=== PATIENT | female | born 1960 | race Caucasian/White ===

== ENCOUNTER → 2024-04-22 | Outpatient (CLI) | payer OTHER, SELFPAY ==
[2024-04-22 15:18] LABS: Absolute Lymphocyte Count 1.42 X10^3/uL (0.83-4.51); Absolute Neutrophil Count 3.5 X10^3/uL (2.0-7.7); Basophil# 0.09 X10^3/uL; Basophil% 1.5 % (0-1); Eosinophil# 0.46 X10^3/uL; Eosinophils% 7.8 % (0-5); Hematocrit 40.8 % (37-47); Lymphocyte # 1.42 X10^3/ul (0.83-4.51); Mean Corp Hgb Conc 31.9 g/dL (32-36); Mean Corpuscular Hgb 28.6 pg (27.0-32.0); Mean Corpuscular Volume 89.7 fL (81-99); Mean Platelet Vol. 11.5 fl (6.2-12.0); Monocyte# 0.48 X10^3/uL; Monocyte% 8.1 % (0-10); NRBC Flagged by Analyzer 0 % (0-5); Neutrophil # 3.45 X10^3/uL (2.7-7.7); Neutrophil % 58.3 % (47-70); Platelet Count 232 K/mm3 (150-450); RBC Distribution Width CV 13.2 % (11.6-14.6); RBC Distribution Width SD 43.5 fl (35.1-43.9); Red Blood Count 4.55 M/mm3 (4.2-5.4); White Blood Count 5.9 K/mm3 (4.4-11.0)
[2024-04-22 15:48] LABS: AST(SGOT) 18 U/L (15-37); Alanine Aminotransfer ALT/SGPT 25 U/L (13-56); Albumin, Serum 3.6 g/dL (3.2-5.0); Alkaline Phosphatase 119 U/L (45-117); Anion Gap 5 (5-15); BUN 13 mg/dL (7-18); BUN/Creat Ratio 15.2 RATIO (10-20); Calcium,Total 9.5 mg/dL (8.5-10.1); Chloride 101 mmol/L (98-107); Cholesterol 276 mg/dL (200); Creatinine, Serum 0.86 mg/dL (0.55-1.02); EST Glomerular Filtration Rate 70 mL/min (>60); Est Glom Filt Rate - Afr Amer 85 mL/min (>60); Globulin 3.5 g/dL (2.2-4.2); Glucose 87 mg/dL (74-106); High Density Lipoprotein 65 mg/dL; Potassium 4.5 mmol/L (3.5-5.1); Protein, Total 7.1 g/dL (6.4-8.2); Sodium Level 135 mmol/L (136-145); Thyroid Stim Hormone (TSH) 1.27 uIU/mL (0.358-3.74); Triglycerides 133 mg/dL; Very Low Density Lipoprotein 27 mg/dL (5-40)
== END | disposition home or self-care (01) ==
LOC: BFHLAB 13:19
PROVIDERS: PCP Family Medicine; Referring Provider Family Medicine; Visit Provider Family Medicine
DX: E03.9 Hypothyroidism, unspecified (principal); I10 Essential (primary) hypertension; E78.5 Hyperlipidemia, unspecified
CPT/HCPCS: 36415; 80053; 80061; 84443; 85025

== ENCOUNTER → 2024-05-26 | Outpatient (CLI) | payer OTHER, SELFPAY ==
--- NOTE | 2024-05-26 09:36 | BI_ITS ---
MAMMOGRAPHY - BILATERAL SCREENING REASON FOR EXAM: Female, 63 years old. Routine annual screening examination. PERTINENT HISTORY: Personal history of breast cancer. Prior right lumpectomy and bilateral breast reduction surgery. Sr. with breast cancer. Mother with breast cancer. TECHNIQUE: Digital bilateral breast azucena (3D mammographic acquisition) in the CC and MLO projections. 2-D mediolateral oblique (MLO) and craniocaudad (CC) views of both breasts were obtained. CAD: Full Field Digital Mammography with Computer Added Detection was performed. COMPARISON: Comparison is made with prior outside examination dated June 20, 2023. FINDINGS: Breast Composition: There are scattered areas of fibroglandular density. There are no dominant masses or suspicious calcifications. The patient is status post lumpectomy in the upper lateral aspect of the right breast with resultant postoperative scarring and dystrophic calcifications. Surgical clips are seen in the right axilla. No other significant abnormalities are identified. There has been no significant change since the prior study. BI/SCRN MAMM (CAD)W/AZUCENA BILAT IMPRESSION: Stable bilateral screening mammogram. Yearly follow-up mammogram recommended. (A) ASSESSMENT CATEGORY: BIRADS Category 2: Benign. A letter regarding these results will be sent to the patient by the facility within 30 days. Approximately 10% of breast cancers are not detected by mammography. A normal mammogram should not delay biopsy of a clinically suspicious abnormality. [id number] Electronically Signed: Tenzin Tarango MD at 15:32 EDT ,
== END | disposition home or self-care (01) ==
LOC: OPBI 09:34
PROVIDERS: PCP Family Medicine; Referring Provider Family Medicine; Visit Provider Family Medicine
DX: Z12.31 Encounter for screening mammogram for malignant neoplasm of breast (principal)
CPT/HCPCS: 77063; 77067

== ENCOUNTER → 2024-08-11 | Outpatient (CLI) | payer OTHER, SELFPAY | END | disposition home or self-care (01) | LOC: BFHLAB 10:50 → LABSPEC 10:51 | PROVIDERS: PCP Family Medicine; Referring Provider Family Medicine; Visit Provider Family Medicine | DX: R30.0 Dysuria (principal) | CPT/HCPCS: 87077; 87086; 87088; 87186 ==

== ENCOUNTER → 2024-11-24 | Outpatient (CLI) | payer MEDICARE, SELFPAY ==
--- NOTE | 2024-11-24 10:41 | RAD_ITS ---
PROCEDURE: CHEST PA AND LATERAL REASON FOR EXAM: Rule out pneumonia TECHNIQUE: Frontal and lateral views of the chest. COMPARISON: None. FINDINGS: The heart size is normal. There are atherosclerotic calcifications of the thoracic aorta. The lungs are clear. The bones are unremarkable. RAD/Chest PA and Lateral IMPRESSION: No radiographic evidence of acute cardiopulmonary disease Reading Location: [facility]
== END | disposition home or self-care (01) ==
LOC: MTLAB 10:39 → MTRAD 10:39
PROVIDERS: PCP Family Medicine; Referring Provider Nurse Practitioner Family; Visit Provider Nurse Practitioner Family
DX: R05.9 Cough, unspecified (principal)
CPT/HCPCS: 71046

== ENCOUNTER → 2025-06-17 | Outpatient (CLI) | payer MEDICARE, SELFPAY ==
--- NOTE | 2025-06-17 15:38 | BI_ITS ---
EXAM: SCRN MAMM (CAD)W/AZUCENA BILAT DATE: 06/17/2025 CLINICAL HISTORY: F, Age 64 y/o , SCREENING Personal history of breast cancer. Prior right lumpectomy and bilateral breast reduction surgery. Sister with breast cancer. Mother with breast cancer. TECHNIQUE: Procedure Code: [id number] Modality: MG Procedure: SCRN MAMM (CAD)W/ZAUCENA BILAT COMPARISON: Prior exam(s) dated May 26, 2024.. FINDINGS: TISSUE DENSITY: There are scattered areas of fibroglandular density. Bilateral Breast Mammographic Findings: No significant masses, calcifications or other abnormalities are identified. The patient is status post lumpectomy in the upper lateral aspect of the right breast with resultant postoperative scarring and dystrophic calcifications more pronounced in the inferior retroareolar region of the right breast. Surgical clips are seen in the right axilla. The left breast is unremarkable. No suspicious masses, areas of developing architectural distortion, or suspicious calcifications. There has been no significant interval change. BI/SCRN MAMM (CAD)W/AZUCENA BILAT IMPRESSION: Stable bilateral screening mammogram. OVERALL FINAL ASSESSMENT BI-RADS 2: BENIGN RECOMMENDATION: Routine annual follow-up in 1 Year A letter with findings and recommendations will be mailed to the patient. Reading Location: [facility]
== END | disposition home or self-care (01) ==
LOC: OPBI 15:37
PROVIDERS: PCP Family Medicine; Referring Provider Family Medicine; Visit Provider Family Medicine
DX: Z12.31 Encounter for screening mammogram for malignant neoplasm of breast (principal)
CPT/HCPCS: 77063; 77067

== ENCOUNTER → 2025-07-07 | Outpatient (CLI) | payer MEDICARE, SELFPAY ==
--- OUTSIDE RECORDS SUMMARY | 2025-07-09 20:50 | XMS RPT_ITS | CCD ---
Author Organization [facility] [employer] Care Team Providers Care Cake Washer Name Role Phone Ruba Melo MD Primary Care Provider RUBA MELO Primary Care Unavailable DALLIN CABRERA Referring Unavailable RUBA MELO Primary Care Unavailable Ruba Melo Primary Care Unavailable Sandy Prakash Attending Unavailable Sandy Prakash Referring Unavailable Ruba Melo Attending Unavailable Ruba Melo Referring Unavailable Ruba Melo Primary Care Unavailable Ruba Melo Primary Care Unavailable Ruba Melo Attending Unavailable Ruba Melo Referring Unavailable Allergies Allergy Classification Reported Allergen(s) Allergy Type Date of Onset Reaction(s) Facility (3 sources) Amitriptyline; Translations: [AMITRIPTYLINE] Drug Allergy 04-28-20 24 Shortness of Breath [place] (4 sources) Shellfish; Translations: [SHELLFISH DERIVED] Drug Intolerance 04-28-20 24 GI Upset [place] (1 source) Amitriptyline Drug Allergy 05-05-20 24 [facility] Repository Medications Current Medications Medication Drug Class(es) Dates Sig (Normalized) Sig (Original) [id number] 200 actuat albuterol 0.09 mg/actuat metered dose inhaler (2 sources) beta2-Adrenergic Agonist Start: 03-18-2024 albuterol HFA (PROVENTIL HFA, VENTOLIN HFA) 90 mcg/actuation inhaler 03/18/2024 Active amoxicillin 875 mg / clavulanate 125 mg oral tablet (1 source) Penicillin-class Antibacterial Start: 04-28-2024 End: 05-03-2024 take 1 tablet by mouth twice daily amoxicillin-clavul anate potassium (AUGMENTIN) 875-125 mg per tablet Take 1 tablet by mouth two times a day for 5 days. 10 tablet 0 04/28/2024 05/03/2024 Active anastrozole 1 mg oral tablet (2 sources) Aromatase Inhibitor Start: 03-16-2024 anastrozole (ARIMIDEX) 1 mg tablet 03/16/2024 Active azelastine hydrochloride 0.137 mg/actuat metered dose nasal spray (2 sources) Histamine-1 Receptor Antagonist Start: 03-16-2024 azelastine 0.1% nasal spray 03/16/2024 Active benzonatate 100 mg oral capsule (1 source) Non-narcotic Antitussive Start: 04-28-2024 take 1 capsule by mouth every eight hours as needed benzonatate (TESSALON PERLES) 100 mg capsule Take 1 capsule by mouth three times a day as needed for cough. 21 capsule 0 04/28/2024 Active 60 actuat ciclesonide 0.08 mg/actuat metered dose inhaler (2 sources) Start: 03-19-2024 ALVESCO 80 mcg/actuation inhaler 03/19/2024 Active ciprofloxacin 3 mg/ml / dexamethasone 1 mg/ml otic suspension (1 source) Corticosteroid, Quinolone Antimicrobial Start: 04-28-2024 ciprofloxacin-dexA METHasone (CIPRODEX) 0.3-0.1 % otic suspension Use 4 Drops in both ears two times a day. 7.5 mL 0 04/28/2024 Active doxycycline hyclate 100 mg oral tablet (1 source) Tetracycline-class Drug Start: 04-28-2024 End: 05-05-2024 take 1 tablet by mouth twice daily doxycycline (VIBRA-TABS) 100 mg tablet Take 1 tablet by mouth two times a day for 7 days. 14 tablet 0 04/28/2024 05/05/2024 Active FLUoxetine 20 mg oral capsule (2 sources) Serotonin Reuptake Inhibitor Start: 02-06-2024 FLUoxetine (PROZAC) 20 mg capsule 02/06/2024 Active levothyroxine sodium 0.05 mg oral tablet (2 sources) l-Thyroxine Start: 02-06-2024 levothyroxine (SYNTHROID) 50 mcg tablet 02/06/2024 Active losartan potassium 50 mg oral tablet (2 sources) Angiotensin 2 Receptor Lauren Start: 02-06-2024 losartan (COZAAR) 50 mg tablet 02/06/2024 Active predniSONE 10 mg oral tablet (1 source) Start: 04-28-2024 predniSONE (DELTASONE) 10 mg tablet Take 4 tabs daily for 3 days, then 2 tabs daily for 3 days, then 1 tab daily for 3 days with food. 21 tablet 0 04/28/2024 Active traZODone hydrochloride 50 mg oral tablet (2 sources) Serotonin Reuptake Inhibitor Start: 02-06-2024 traZODone (DESYREL) 50 mg tablet 02/06/2024 Active Problems Active Problems Problem Classification Problem Date Documented Da te Episodic/Chronic Other ear and sense organ disorders (1 source) Acute otitis externa of bilateral ears; Translations: [Unspecified acute noninfective otitis externa, bilateral] 04-28-2024 Episodic Other lower respiratory disease (2 sources) Cough; Translations: [Acute cough] 04-28-2024 Episodic Other screening for suspected conditions (not mental disorders or infectious disease) (1 source) Encounter for screening mammogram for malignant neoplasm of breast; Translations: [Encounter for screening mammogram for malignant neoplasm of breast] Onset: 06-27-2025 Episodic Pneumonia (except that caused by tuberculosis or sexually transmitted disease) (1 source) Infective pneumonia; Translations: [Pneumonia, unspecified organism] 04-28-2024 Episodic Unclassified (1 source) Acute cough; Translations: [Acute cough] Onset: 04-28-2024 Unclassified (1 source) Cough, unspecified; Translations: [Cough, unspecified] Onset: 12-06-2024 Past or Other Problems Problem Classification Problem Date Documented Da te Episodic/Chronic Genitourinary symptoms and ill-defined conditions (1 source) Dysuria; Translations: [Dysuria] Onset: 08-30-2024 Episodic Results Test Name Value Interpretation Reference Range Facility SCRN MAMM (CAD)W/AZUCENAAngeline Ridley n 06-17-2025 SCRN MAMM (CAD)W/AZUCENA [facility] Imaging Services [address] [place] [address] SCRN MAMM (CAD)W/AZUCENA [place] MR#: [id number] Acct: [id number] Name: JASONDEVI JO Rep #: [id number] : 1960 F 64 From: Tenzin reyes MD PCP: Dr. Ruba Melo MD Status: REG CLI Study: SCRN MAMM (CAD)W/AZUCENA BILAT Date of Exam: 06/08 Exam# [id number] Ordering Dr: Ruba Melo MD EXAM: SCRN MAMM (CAD)W/AZUCENA BILAT DATE: 06/17/2025 CLINICAL HISTORY: F, Age 64 y/o , SCREENING Personal history of breast cancer. Prior right lumpectomy and bilateral breast reduction surgery. Sister with breast cancer. Mother with breast cancer. TECHNIQUE: Procedure Code: [id number] Modality: MG Procedure: SCRN MAMM (CAD)W/AZUCENA BILAT COMPARISON: Prior exam(s) dated May 26, 2024.. FINDINGS: TISSUE DENSITY: There are scattered areas of fibroglandular density. Bilateral Breast Mammographic Findings: No significant masses, calcifications or other abnormalities are identified. The patient is status post lumpectomy in the upper lateral aspect of the right breast with resultant postoperative scarring and dystrophic calcifications more pronounced in the inferior retroareolar region of the right breast. Surgical clips are seen in the right axilla. The left breast is unremarkable. No suspicious masses, areas of developing architectural distortion, or suspicious calcifications. There has been no significant interval change. BI/SCRN MAMM (CAD)W/AZUCENA BILAT IMPRESSION: Stable bilateral screening mammogram. OVERALL FINAL ASSESSMENT BI-RADS 2: BENIGN RECOMMENDATION: Routine annual follow-up in 1 Year A letter with findings and recommendations will be mailed to the patient. Reading Location: [id number] CC: Dr. Ruba Melo MD Time Checker: Signed Normal [facility] Chest PA and Lateralon 11-24 Chest PA and Lateral [facility] Imaging Services [address] [place] [id number] Chest PA and Lateral MR#: [id number] Acct: [id number] Name: DEVI LUIS Rep #: [id number] : 1960 F 64 From: Mohinder Soria MD PCP: Dr. Ruba Melo MD Status: REG CLI Study: Chest PA and Lateral Date of Exam: 11/24/24 Exam# [id number] Ordering Dr: Sandy Prakash ASSESSMENT EXPERT-C PROCEDURE: CHEST PA AND LATERAL REASON FOR EXAM: Rule out pneumonia TECHNIQUE: Frontal and lateral views of the chest. COMPARISON: None. FINDINGS: The heart size is normal. There are atherosclerotic calcifications of the thoracic aorta. The lungs are clear. The bones are unremarkable. RAD/Chest PA and Lateral IMPRESSION: No radiographic evidence of acute cardiopulmonary disease Reading Location: [facility] CC: ASSESSMENT EXPERT-C Sandy Prakash; Dr. Ruba Melo MD Time Checker: Signed Normal [facility] Urine Cultureon 08-13-2024 [facility] Klebsiella pneumonia e sp pneum [place] Count >100,000 Klebsiella pneumoniae sp pneum: REACTION Ampicillin Islt KARL >=32 Ampicillin+Sulbac Islt KARL 4 S ceFAZolin Islt KARL <=4 S Cefepime Islt KARL <=0.12 S cefTRIAXone Islt KARL <=0.25 S Ciprofloxacin Islt KARL <=0.25 S B-Lactamase Extended Susc Islt NEG Gentamicin Islt KARL <=1 S Imipenem Islt KARL <=0.25 S levoFLOXacin Islt KARL <=0.12 S Nitrofurantoin Islt KARL 64 I Pip+Tazo Islt KARL <=4 S Tobramycin Islt KARL <=1 S TMP SMX Islt KARL <=20 S Normal [facility] Comment on above: Performed By: #### M 100.2201 #### [facility] Laboratory [address] [place], [place], [address] CNOVon 04-28-2024 CNOV Office Visit ([facility]WSTR ) DEVI LUIS ([id number]) 1960 F Date Time Provider Department 04/28/24 7:15 AM DALLIN CABRERA [facility] During your visit today, we recorded the following information about you: Temperature Pulse Respiration Blood pressure 98.9 degrees 88/minute 16/minute 110/64 Weight 87.9 kg Dallin Cabrera APRN.CNP 04/28/2024 9:03 AM Signed This note was created using Collaajriter. Subjective Devi Luis is a 63 year old female. 63 year old female with HTN, chronic sinusitis, asthma, bronchitis presents for illness. Acute onset one month ago. +frontal sinus pressure +ear discomfort Pressure and itching +swollen lymph nodes +cough (chronic) +post nasal drainage +low grade fever yesterday (which has resolved this morning) +chills Denies N/V/D Has used peroxide and alcohol in ears +Neosporin Denies tobacco usage The history is provided by the patient. No strike plate attacher was used. Sinus Problem This is a new problem. The current episode started 1 to 4 weeks ago. The problem occurs constantly. The problem has been gradually worsening. Associated symptoms include congestion, coughing, a fever, headaches and swollen glands. Pertinent negatives include no abdominal pain, anorexia, arthralgias, change in bowel habit, chest pain, chills, diaphoresis, fatigue, joint swelling, myalgias, nausea, neck pain, numbness, rash, sore throat, urinary symptoms, vertigo, visual change, vomiting or weakness. Nothing aggravates the symptoms. She has tried nothing for the symptoms. The treatment provided no relief. No past medical history on file. No past surgical history on file. ALLERGIES Amitriptyline and Shellfish Derived MEDICATIONS albuterol HFA (PROVENTIL HFA, VENTOLIN HFA) 90 mcg/actuation inhaler anastrozole (ARIMIDEX) 1 mg tablet azelastine 0.1% nasal spray ALVESCO 80 mcg/actuation inhaler FLUoxetine (PROZAC) 20 mg capsule levothyroxine (SYNTHROID) 50 mcg tablet losartan (COZAAR) 50 mg tablet traZODone (DESYREL) 50 mg tablet doxycycline (VIBRA-TABS) 100 mg tablet Take 1 tablet by mouth two times a day for 7 days. predniSONE (DELTASONE) 10 mg tablet Take 4 tabs daily for 3 days, then 2 tabs daily for 3 days, then 1 tab daily for 3 days with food. benzonatate (TESSALON PERLES) 100 mg capsule Take 1 capsule by mouth three times a day as needed for cough. ciprofloxacin-dexAMETH asone (CIPRODEX) 0.3-0.1 % otic suspension Use 4 Drops in both ears two times a day. amoxicillin-clavulanat e potassium (AUGMENTIN) 875-125 mg per tablet Take 1 tablet by mouth two times a day for 5 days. No family history on file. Review of Systems Constitutional: Positive for fever. Negative for chills, diaphoresis and fatigue. HENT: Positive for congestion and ear discharge. Negative for rhinorrhea, sinus pressure, sinus pain and sore throat. Eyes: Negative for pain, discharge and itching. Respiratory: Positive for cough. Cardiovascular: Negative for chest pain. Gastrointestinal: Negative for abdominal pain, anorexia, change in bowel habit, nausea and vomiting. Musculoskeletal: Negative for arthralgias, joint swelling, myalgias and neck pain. Skin: Negative for color change, pallor and rash. Allergic/Immunologic: Negative for environmental allergies, food allergies and immunocompromised state. Neurological: Positive for headaches. Negative for vertigo, weakness and numbness. Hematological: Negative for adenopathy. Does not bruise/bleed easily. Psychiatric/Behavioral : Negative for agitation and behavioral problems. Objective BP 110/64 Pulse 88 Temp 37.2 ?C (98.9 ?F) Resp 16 Wt 87.9 kg (193 lb 12.6 oz) SpO2 94% Physical Exam Vitals and nursing note reviewed. Constitutional: General: She is not in acute distress. Appearance: Normal appearance. She is normal weight. She is not ill-appearing, toxic-appearing or diaphoretic. HENT: Head: Normocephalic and atraumatic. Comments: +frontal sinus pressure Right Ear: Ear canal and external ear normal. Left Ear: Ear canal and external ear normal. Ears: Comments: Bilateral EAC's erythematous and swollen. Nose: Nose normal. No congestion or rhinorrhea. Mouth/Throat: Mouth: Mucous membranes are moist. Pharynx: Posterior oropharyngeal erythema present. No oropharyngeal exudate. Eyes: General: Right eye: No discharge. Left eye: No discharge. Extraocular Movements: Extraocular movements intact. Conjunctiva/sclera: Conjunctivae normal. Pupils: Pupils are equal, round, and reactive to light. Cardiovascular: Rate and Rhythm: Normal rate and regular rhythm. Pulses: Normal pulses. Heart sounds: Normal heart sounds. No murmur heard. No friction rub. Pulmonary: Effort: Pulmonary effort is normal. No respiratory distress. Breath sounds: Normal breath sounds. No stridor. No wheezing, rhonchi or ral (more content not included)... Normal [facility] XR CHEST 2V FRONTAL/LATon XR CHEST 2V FRONTAL/LAT * * *Final Report* * * DATE OF EXAM: Apr 28 2024 8:17AM WOX [id number] - XR CHEST 2V FRONTAL/LAT / PROCEDURE REASON: Acute cough * * * * Physician Interpretation * * * * EXAMINATION: CHEST RADIOGRAPH (2 VIEW FRONTAL and LATERAL) CLINICAL HISTORY: Acute cough MQ: XC2_6 EXAM DATE/TIME: 04/28/2024 8:17 AM COMPARISON: No relevant prior studies available. RESULT: Lines, tubes, and devices: None. Lungs and pleura: There are small patchy opacities overlying the bilateral lungs, more on the left side. No mass lesion identified. No pleural effusions or pneumothorax. Cardiomediastinal silhouette: Normal cardiomediastinal silhouette. Bones and soft tissues: Unremarkable. IMPRESSION: Small opacities in the bilateral lungs, raising concern for infection/pneumonia. Please clinically correlate. Time Checker: ISAMAR Transcribe Date/Time: Apr 28 2024 8:19A Dictated by : KINA DAVIS MD This examination was interpreted and the report reviewed and electronically signed by: KINA DAVIS MD on Apr 28 2024 8:20AM EST [id number] Normal [facility] XR Chest PA and Lateralon IMPRESSION: Small opacities in the bilateral lungs, raising concern for infection/pneumonia. Please clinically correlate. Time Checker: PSCJorge Alberto Transcribe Date/Time: Apr 28 2024 8:19A Dictated by : KINA DAVIS MD This examination was interpreted and the report reviewed and electronically signed by: KINA DAVIS MD on Apr 28 2024 8:20AM EST DIVISION OF RADIOLOGY * * *Final Report* * * DATE OF EXAM: Apr 28 2024 8:17AM WOX [id number] - XR CHEST 2V FRONTAL/LAT / PROCEDURE REASON: Acute cough * * * * Physician Interpretation * * * * EXAMINATION: CHEST RADIOGRAPH (2 VIEW FRONTAL & LATERAL) CLINICAL HISTORY: Acute cough MQ: XC2_6 EXAM DATE/TIME: 04/28/2024 8:17 AM COMPARISON: No relevant prior studies available. RESULT: Lines, tubes, and devices: None. Lungs and pleura: There are small patchy opacities overlying the bilateral lungs, more on the left side. No mass lesion identified. No pleural effusions or pneumothorax. Cardiomediastinal silhouette: Normal cardiomediastinal silhouette. Bones and soft tissues: Unremarkable. DIVISION OF RADIOLOGY Provider, Enrique Crowder - 04/28/2024 * * *Final Report* * * DATE OF EXAM: Apr 28 2024 8:17AM WOX [id number] - XR CHEST 2V FRONTAL/LAT / PROCEDURE REASON: Acute cough * * * * Physician Interpretation * * * * EXAMINATION: CHEST RADIOGRAPH (2 VIEW FRONTAL & LATERAL) CLINICAL HISTORY: Acute cough MQ: XC2_6 EXAM DATE/TIME: 04/28/2024 8:17 AM COMPARISON: No relevant prior studies available. RESULT: Lines, tubes, and devices: None. Lungs and pleura: There are small patchy opacities overlying the bilateral lungs, more on the left side. No mass lesion identified. No pleural effusions or pneumothorax. Cardiomediastinal silhouette: Normal cardiomediastinal silhouette. Bones and soft tissues: Unremarkable. IMPRESSION IMPRESSION: Small opacities in the bilateral lungs, raising concern for infection/pneumonia. Please clinically correlate. Time Checker: ISAMAR Transcribe Date/Time: Apr 28 2024 8:19A Dictated by : KINA DAVIS MD This examination was interpreted and the report reviewed and electronically signed by: KINA DAVIS MD on Apr 28 2024 8:20AM EST [place] [facility] Study observation (narrative) [place] XR Chest PA and LateralOrder ed By: [facility] Provider on 04-28-2024 [place] Vital Signs Date Time Vital Sign Value Performing Clinician Serg saenz 04-28-2024 07:20-0400 Body temperature 98.91 [degF] Dallin Cabrera STEELWORKER.INFORMATICS DEVELOPER Work Phone: [place] 04-28-2024 07:20-0400 Body weight 87.9 kg Dallin Cabrera STEELWORKER.INFORMATICS DEVELOPER Work Phone: [place] 04-28-2024 07:20-0400 Diastolic blood pressure 64 mm[Hg] Dallin Cabrera STEELWORKER.INFORMATICS DEVELOPER Work Phone: [place] 04-28-2024 07:20-0400 Heart rate 88 /min Dallin Cabrera STEELWORKER.INFORMATICS DEVELOPER Work Phone: [place] 04-28-2024 07:20-0400 Respiratory rate 16 /min Dallin Cabrera STEELWORKER.INFORMATICS DEVELOPER Work Phone: [place] 04-28-2024 07:20-0400 SaO2% (BldA) [Mass fraction] 94 % Dallin Cabrera STEELWORKER.INFORMATICS DEVELOPER Work Phone: [place] 04-28-2024 07:20-0400 Systolic blood pressure 110 mm[Hg] Dallin Cabrera STEELWORKER.INFORMATICS DEVELOPER Work Phone: [place] Encounters Encounter Date Encounter Type Care Provider Facility Start: 06-17-2025 End: 06-17-2025 ambulatory [facility] Facility:[facility] Start: 11-24-2024 End: 11-24-2024 ambulatory [facility] Facility:[facility] Start: 08-11-2024 End: 08-11-2024 ambulatory [facility] Facility:[facility] Start: 04-28-2024 End: 04-28-2024 Subsequent hospital visit by physician Xr [facility] Work Phone: Radiology Comment on above: Acute cough [R05.1] Start: 04-28-2024 End: 04-28-2024 ambulatory [facility] Facility:[facility] Start: 04-28-2024 End: 04-28-2024 Patient encounter procedure Dallin Cabrera STEELWORKER.INFORMATICS DEVELOPER Work Phone: [facility] Care Comment on above: Acute cough (Primary Dx); Pneumonia of both lungs due to infectious organism, unspecified part of lung; Acute otitis externa of both ears, unspecified type Procedures Date Procedure Procedure Detail Performing Clinician Start: 04-28-2024 Radiologic exam ches t 2 views Dallin Cabrera APRN.CNP Work Phone: Plan of Treatment Date Care Activity Detail Author Start: 06-08-2024 Covid-19 Vaccine () Covid-19 Vaccine () [place] Start: 06-08-2024 Influenza vaccination Influenza Vacc ine (#1) [place] Start: 10-08-2023 Advance Directive Discussion Advance Directive Discussion [place] Start: 10-08-2023 Behavioral Health Screening Behavioral Health Screening [place] Start: 2023 Pneumococcal Vaccine : 65+ (1 of 1 - PCV) Pneumococcal Vaccine: 65+ (1 of 1 - PCV) [place] Start: 2023 Screening for osteoporosis Bone Density Screening [place] Start: 06-08-2023 Covid-19 Vaccine ( season) Covid-19 Vaccine ( season) [place] Start: 2018 RSV Vaccine (1 - 1-d ose 60+ series) RSV Vaccine (1 - 1-dose 60+ series) [place] Start: 2008 Shingrix Vaccine (1 of 2) Shingrix V accine (1 of 2) [place] Start: 2003 Diabetes Screening Diabetes Screenin g [place] Start: 2003 Lipid panel Lipid Screening [facility] Start: 2003 Screening for malign ant neoplasm of colon [place] Start: 1998 Screening for malign ant neoplasm of breast Mammogram Screening [place] Start: 1977 Urine microalbumin profile DTaP,Tdap,Td Vaccine (1 - Tdap) [place] Start: 1976 Anxiety Screening Anxiety Screening [place] Start: 1976 Depression Screening Depression Scre ening [place] Start: 1976 Hepatitis C screening Hepatitis C Sc reening [place] Start: 1976 HIV screening [facility] Payers Date Payer Category Payer Self-pay 2024 Medicare MMO MEDICARE MMO [employer] HMO [id number] 2024-Present [phone] [address] [place] [address] HMO [id number] 2024 Unknown [id number] Unknown [id number] Unknown [id number] Unknown [id number] Social History Date Type Detail Facility Tobacco smoking stat [facility] Tobacco smoking consumption unknown [place] Start: 1960 Sex Assigned At Not on file [facility] Gender identity Not on file [facility] in History of Present illness Narrative 04-28-2024 Cathy Lamb RT(R) - 04/28/2024 8:00 AM EDT Note Date & Type Note Facility 04-28-2024 History of Presen t illness Narrative Radiology Service Progress Note PATIENT NAME: Devi Luis DATE OF SERVICE: April 28, 2024 TIME: 8:11 AM PATIENT IDENTITY VERIFICATION COMPLETED USING TWO (2) IDENTIFIERS: Name and Date of confirmed by patient verbally. FALL SCREENING: Has the patient had 2 falls in the last year or 1 fall with injury or currently using an Ambulatory Assistive Device (Walker, Cane, Wheelchair, Crutches, etc.)? No PATIENT GENDER DATA: Female. status: : No status: NO. PATIENT RELEVANT IMPLANT DATA REVIEWED: Yes PATIENT PRESENTS WITH AN IMPLANTABLE OR ATTACHED CRITICAL CARE UNIT NURSE: No RADIOLOGY DEPARTMENT: General X-ray: Exam(s) Completed: Chest X-Ray PERIPHERAL IV DATA: Not applicable SIGNED BY: RT Jose(Vahe) April 28, 2024 8:11 AM documented in this encounter [place] Progress note 04-28-2024 Note Date & Type Note Facility 04-28-2024 Note HNO ID: [id number] Author: CATHY LAMB RT(R) Service: Radiology Author Type: Technologist Type: Progress Notes Filed: 04/28/2024 08:17 Note Text: Radiology Service Progress Note PATIENT NAME: Devi Luis DATE OF SERVICE: April 28, 2024 TIME: 8:11 AM PATIENT IDENTITY VERIFICATION COMPLETED USING TWO (2) IDENTIFIERS: Name and Date of confirmed by patient verbally. FALL SCREENING: Has the patient had 2 falls in the last year or 1 fall with injury or currently using an Ambulatory Assistive Device (Walker, Cane, Wheelchair, Crutches, etc.)? No PATIENT GENDER DATA: Female. status: : No status: NO. PATIENT RELEVANT IMPLANT DATA REVIEWED: Yes PATIENT PRESENTS WITH AN IMPLANTABLE OR ATTACHED CRITICAL CARE UNIT NURSE: No RADIOLOGY DEPARTMENT: General X-ray: Exam(s) Completed: Chest X-Ray PERIPHERAL IV DATA: Not applicable SIGNED BY: RT Jose(R) April 28, 2024 8:11 AM [facility] Progress note 04-28-2024 Note Date & Type Note Facility 04-28-2024 Note HNO ID: [id number] Author: DALLIN CABRERA APRN.INFORMATICS DEVELOPER Service: ? Author Type: Nurse Practitioner Type: Progress Notes Filed: 04/28/2024 09:03 Note Text: This note was created using NoteWriter. Subjective Devi Luis is a 63 year old female. 63 year old female with HTN, chronic sinusitis, asthma, bronchitis presents for illness. Acute onset one month ago. +frontal sinus pressure +ear discomfort Pressure and itching +swollen lymph nodes +cough (chronic) +post nasal drainage +low grade fever yesterday (which has resolved this morning) +chills Denies N/V/D Has used peroxide and alcohol in ears +Neosporin Denies tobacco usage The history is provided by the patient. No strike plate attacher was used. Sinus Problem This is a new problem. The current episode started 1 to 4 weeks ago. The problem occurs constantly. The problem has been gradually worsening. Associated symptoms include congestion, coughing, a fever, headaches and swollen glands. Pertinent negatives include no abdominal pain, anorexia, arthralgias, change in bowel habit, chest pain, chills, diaphoresis, fatigue, joint swelling, myalgias, nausea, neck pain, numbness, rash, sore throat, urinary symptoms, vertigo, visual change, vomiting or weakness. Nothing aggravates the symptoms. She has tried nothing for the symptoms. The treatment provided no relief. No past medical history on file. No past surgical history on file. ALLERGIES Amitriptyline and Shellfish Derived MEDICATIONS albuterol HFA (PROVENTIL HFA, VENTOLIN HFA) 90 mcg/actuation inhaler anastrozole (ARIMIDEX) 1 mg tablet azelastine 0.1% nasal spray ALVESCO 80 mcg/actuation inhaler FLUoxetine (PROZAC) 20 mg capsule levothyroxine (SYNTHROID) 50 mcg tablet losartan (COZAAR) 50 mg tablet traZODone (DESYREL) 50 mg tablet doxycycline (VIBRA-TABS) 100 mg tablet Take 1 tablet by mouth two times a day for 7 days. predniSONE (DELTASONE) 10 mg tablet Take 4 tabs daily for 3 days, then 2 tabs daily for 3 days, then 1 tab daily for 3 days with food. benzonatate (TESSALON PERLES) 100 mg capsule Take 1 capsule by mouth three times a day as needed for cough. ciprofloxacin-dexAMETHasone (CIPRODEX) 0.3-0.1 % otic suspension Use 4 Drops in both ears two times a day. amoxicillin-clavulanate potassium (AUGMENTIN) 875-125 mg per tablet Take 1 tablet by mouth two times a day for 5 days. No family history on file. Review of Systems Constitutional: Positive for fever. Negative for chills, diaphoresis and fatigue. HENT: Positive for congestion and ear discharge. Negative for rhinorrhea, sinus pressure, sinus pain and sore throat. Eyes: Negative for pain, discharge and itching. Respiratory: Positive for cough. Cardiovascular: Negative for chest pain. Gastrointestinal: Negative for abdominal pain, anorexia, change in bowel habit, nausea and vomiting. Musculoskeletal: Negative for arthralgias, joint swelling, myalgias and neck pain. Skin: Negative for color change, pallor and rash. Allergic/Immunologic: Negative for environmental allergies, food allergies and immunocompromised state. Neurological: Positive for headaches. Negative for vertigo, weakness and numbness. Hematological: Negative for adenopathy. Does not bruise/bleed easily. Psychiatric/Behavioral: Negative for agitation and behavioral problems. Objective BP 110/64 Pulse 88 Temp 37.2 ?C (98.9 ?F) Resp 16 Wt 87.9 kg (193 lb 12.6 oz) SpO2 94% Physical Exam Vitals and nursing note reviewed. Constitutional: General: She is not in acute distress. Appearance: Normal appearance. She is normal weight. She is not ill-appearing, toxic-appearing or diaphoretic. HENT: Head: Normocephalic and atraumatic. Comments: +frontal sinus pressure Right Ear: Ear canal and external ear normal. Left Ear: Ear canal and external ear normal. Ears: Comments: Bilateral EAC's erythematous and swollen. Nose: Nose normal. No congestion or rhinorrhea. Mouth/Throat: Mouth: Mucous membranes are moist. Pharynx: Posterior oropharyngeal erythema present. No oropharyngeal exudate. Eyes: General: Right eye: No discharge. Left eye: No discharge. Extraocular Movements: Extraocular movements intact. Conjunctiva/sclera: Conjunctivae normal. Pupils: Pupils are equal, round, and reactive to light. Cardiovascular: Rate and Rhythm: Normal rate and regular rhythm. Pulses: Normal pulses. Heart sounds: Normal heart sounds. No murmur heard. No friction rub. Pulmonary: Effort: Pulmonary effort is normal. No respiratory distress. Breath sounds: Normal breath sounds. No stridor. No wheezing, rhonchi or rales. Chest: Chest wall: No tenderness. Abdominal: General: Abdomen is flat. There is no distension. Palpations: Abdomen is soft. There is no mass. Tenderness: There is no abdominal tenderness. There is no right CVA tenderness, left CVA tenderness, guarding or rebound. Hernia (more content not included)... [facility] History of Present illness Narrative 04-28-2024 Dallin Cabrera APRN.[facility] - 04/28/2024 7:23 AM EDT Note Date & Type Note Facility 04-28-2024 History of Presen t illness Narrative This note was created using [employer]. Subjective Devi Luis is a 63 year old female. 63 year old female with HTN, chronic sinusitis, asthma, bronchitis presents for illness. Acute onset one month ago. +frontal sinus pressure +ear discomfort Pressure and itching +swollen lymph nodes +cough (chronic) +post nasal drainage +low grade fever yesterday (which has resolved this morning) +chills Denies N/V/D Has used peroxide and alcohol in ears +Neosporin Denies tobacco usage The history is provided by the patient. No strike plate attacher was used. Sinus Problem This is a new problem. The current episode started 1 to 4 weeks ago. The problem occurs constantly. The problem has been gradually worsening. Associated symptoms include congestion, coughing, a fever, headaches and swollen glands. Pertinent negatives include no abdominal pain, anorexia, arthralgias, change in bowel habit, chest pain, chills, diaphoresis, fatigue, joint swelling, myalgias, nausea, neck pain, numbness, rash, sore throat, urinary symptoms, vertigo, visual change, vomiting or weakness. Nothing aggravates the symptoms. She has tried nothing for the symptoms. The treatment provided no relief. No past medical history on file. No past surgical history on file. ALLERGIES Amitriptyline and Shellfish Derived MEDICATIONS albuterol HFA (PROVENTIL HFA, VENTOLIN HFA) 90 mcg/actuation inhaler anastrozole (ARIMIDEX) 1 mg tablet azelastine 0.1% nasal spray ALVESCO 80 mcg/actuation inhaler FLUoxetine (PROZAC) 20 mg capsule levothyroxine (SYNTHROID) 50 mcg tablet losartan (COZAAR) 50 mg tablet traZODone (DESYREL) 50 mg tablet doxycycline (VIBRA-TABS) 100 mg tablet Take 1 tablet by mouth two times a day for 7 days. predniSONE (DELTASONE) 10 mg tablet Take 4 tabs daily for 3 days, then 2 tabs daily for 3 days, then 1 tab daily for 3 days with food. benzonatate (TESSALON PERLES) 100 mg capsule Take 1 capsule by mouth three times a day as needed for cough. ciprofloxacin-dexAMETHasone (CIPRODEX) 0.3-0.1 % otic suspension Use 4 Drops in both ears two times a day. amoxicillin-clavulanate potassium (AUGMENTIN) 875-125 mg per tablet Take 1 tablet by mouth two times a day for 5 days. No family history on file. Review of Systems Constitutional: Positive for fever. Negative for chills, diaphoresis and fatigue. HENT: Positive for congestion and ear discharge. Negative for rhinorrhea, sinus pressure, sinus pain and sore throat. Eyes: Negative for pain, discharge and itching. Respiratory: Positive for cough. Cardiovascular: Negative for chest pain. Gastrointestinal: Negative for abdominal pain, anorexia, change in bowel habit, nausea and vomiting. Musculoskeletal: Negative for arthralgias, joint swelling, myalgias and neck pain. Skin: Negative for color change, pallor and rash. Allergic/Immunologic: Negative for environmental allergies, food allergies and immunocompromised state. Neurological: Positive for headaches. Negative for vertigo, weakness and numbness. Hematological: Negative for adenopathy. Does not bruise/bleed easily. Psychiatric/Behavioral: Negative for agitation and behavioral problems. Objective BP 110/64 Pulse 88 Temp 37.2 C (98.9 F) Resp 16 Wt 87.9 kg (193 lb 12.6 oz) SpO2 94% Physical Exam Vitals and nursing note reviewed. Constitutional: General: She is not in acute distress. Appearance: Normal appearance. She is normal weight. She is not ill-appearing, toxic-appearing or diaphoretic. HENT: Head: Normocephalic and atraumatic. Comments: +frontal sinus pressure Right Ear: Ear canal and external ear normal. Left Ear: Ear canal and external ear normal. Ears: Comments: Bilateral EAC's erythematous and swollen. Nose: Nose normal. No congestion or rhinorrhea. Mouth/Throat: Mouth: Mucous membranes are moist. Pharynx: Posterior oropharyngeal erythema present. No oropharyngeal exudate. Eyes: General: Right eye: No discharge. Left eye: No discharge. Extraocular Movements: Extraocular movements intact. Conjunctiva/sclera: Conjunctivae normal. Pupils: Pupils are equal, round, and reactive to light. Cardiovascular: Rate and Rhythm: Normal rate and regular rhythm. Pulses: Normal pulses. Heart sounds: Normal heart sounds. No murmur heard. No friction rub. Pulmonary: Effort: Pulmonary effort is normal. No respiratory distress. Breath sounds: Normal breath sounds. No stridor. No wheezing, rhonchi or rales. Chest: Chest wall: No tenderness. Abdominal: General: Abdomen is flat. There is no distension. Palpations: Abdomen is soft. There is no mass. Tenderness: There is no abdominal tenderness. There is no right CVA tenderness, left CVA tenderness, guarding or rebound. Hernia: No hernia is present. Musculoskeletal: General: No swelling, tenderness, deformity or signs of injury. Normal range of motion. Cervical back: Normal range of motion and neck supple. No rigidity. Right lower leg: No edema. Left lower leg: No edema. Lymphadenopathy: Cervical: Cervical adenopathy present. Skin: General: Skin is warm and dry. Capillary Refill: Capillary refill takes less than 2 seconds. Coloration: Skin is not jaundiced or pale. Findings: No bruising, erythema, lesion or rash. Neurological: General: No focal deficit present. Mental Status: She is alert and oriented to person, place, and time. Cranial Nerves: No cranial nerve deficit. Sensory: No sensory deficit. Motor: No weakness. Coordination: Coordination normal. Gait: Gait normal. Psychiatric: Mood and Affect: Mood normal. Behavior: Behavior normal. Thought Content: Thought content normal. Judgment: Judgment normal. Assessment and Plan ASSESSMENT/PLAN: 1. Acute cough - ICD9: 786.2, ICD10: R05.1 (primary diagnosis) X 1 month Endorses history of chronic bronchitis and asthma - XR CHEST 2V FRONTAL/LAT-Small opacities in the bilateral lungs, raising concern for infection/pneumonia. Please clinically correlate. 2. Pneumonia of both lungs due to infectious organism, unspecified part of lung - ICD9: 483.8, ICD10: J18.9 Bilateral History of asthma and chronic bronchitis Will placed on Doxy and Augmentin RX Tessalon Perles RX Prednisone taper 3. Acute otitis externa of both ears, unspecified type - ICD9: 380.10, ICD10: H60.503 RX Ciprodex Keep ears clean and dry Avoid placing hydrogen peroxide in ear Dallin Cabrera APRN.INFORMATICS DEVELOPER documented in this encounter [facility] Evaluation note Note Date & Type Note Facility Evaluation note Diagnosis Acute cough- Primary Pneumonia of both lungs due to infectious organism, unspecified part of lung Acute otitis externa of both ears, unspecified type Acute cough documented in this encounter [facility] Evaluation note Note Date & Type Note Facility Evaluation note Diagnosis Acute cough documented in this encounter [facility] Summary Purpose Family History No Family History Records FoundNo Family History Records Found Advance Directives No Advanced Directives Records FoundNo Advanced Directives Records Found Additional Source Comments Source Comments (unrecognize d section and content) In the event this informatio n is protected by the Federal Confidentiality of Alcohol and Drug Abuse Patient Records regulations: The Federal rules restrict any use of the information to criminally investigate or prosecute any alcohol or drug abuse patient.[place] event this information is protected by the Federal Confidentiality of Alcohol and Drug Abuse Patient Records regulations: The Federal rules restrict any use of the information to criminally investigate or prosecute any alcohol or drug abuse patient.[place] Reason for Visit (unrecogniz ed section and content) Reason Comments Sinus Problem sinus pressure, drai nage, bilateral ear pain x 1 month Care Teams (unrecognized sec tion and content) Cake Washer Relationship Specialty Start Date End Date Ruba Melo MD [address] [place] [address] PCP - General Family Medicine 04/28/24 Cake Washer Relationship Specialty Start Date End Date Ruba Melo MD [address] [place] [address] PCP - General Family Medicine 04/28/24 INFORMATION SOURCE (unrecogn ized section and content) DATE CREATED AUTHOR 04/30/2024 [facility] DATE CREATED AUTHOR AUTHOR'S ALEXIS ACOSTA 06/28/2025 [facility] FOR RECORDS PERTAINING TO PATIENTS WHO ARE OR HAVE BEEN ENROLLED IN A CHEMICAL DEPENDENCY/SUBSTANCEABUSE PROGRAM, SOME INFORMATION MAY BE OMITTED. This clinical summary was aggregated from multiple sources. Caution should be exercised in using it in the provision of clinical care. This summary normalizes information from multiple sources, and as a consequence, information in this document may materially change the coding, format and clinical context of patient data. In addition, data may be omitted in some cases. CLINICAL DECISIONS SHOULD BE BASED ON THE PRIMARY CLINICAL RECORDS. [employer] [facility] provides no warranty or guarantee of the accuracy or completeness of information in this document.
--- OUTSIDE RECORDS SUMMARY | 2025-07-09 20:50 | XMS RPT_ITS | CCD ---
Author Organization [facility] Care Team Providers Care Machine Plate Stacker Name Role Phone Ruba Melo MD Primary [...] Drug Allergy 04-28-20 24 Shortness of Breath [facility] (4 sources) Shellfish; Translations: [SHELLFISH DERIVED] Drug Intolerance 04-28-20 24 GI Upset [facility] (1 source) Amitriptyline Drug Allergy 05-05-20 24 [facility] Repository Medications Current Medications Medication Drug Class(es) Dates Sig (Normalized) Sig (Original) [id number] 200 actuat albuterol 0.09 mg/actuat metered dose [...] Ridley n 06-17-2025 SCRN MAMM (CAD)W/AZUCENA DOMINGUEZ [facility] Imaging Services [address] [place] [address] SCRN MAMM (CAD)W/AZUCENA MONTSEHELEN MR#: [id number] Acct: [id number] Name: JASONDEVI JO Rep #: [id number] : 1960 F 64 From: Tenzin reyes MD PCP: Dr. Ruba Melo MD Status: REG CLI Study: SCRN MAMM (CAD)W/AZUCENA BILAT Date of Exam: 06/08 Exam# [id number] Ordering Dr: Ruba Melo MD EXAM: SCRN [...] be mailed to the patient. Reading Location: [id number] CC: Dr. Ruba Melo MD Dog Daycare Provider: Signed Normal [facility] Chest PA and Lateralon 11-24 Chest PA and Lateral [facility] [address] [place] [address] Chest PA and Lateral MR#: [id number] Acct: [id number] Name: DEVI LUIS Rep #: [id number] : 1960 F 64 From: Mohinder Soria MD PCP: Dr. Ruba Melo MD Status: REG CLI Study: Chest PA and Lateral Date of Exam: 11/24/24 Exam# [id number] Ordering Dr: Sandy Prakash MACHINE FITTER-C PROCEDURE: CHEST PA AND LATERAL REASON FOR EXAM: Rule out pneumonia TECHNIQUE: Frontal and lateral views of the chest. COMPARISON: None. FINDINGS: The heart size is normal. There are atherosclerotic calcifications of the thoracic aorta. The lungs are clear. The bones are unremarkable. RAD/Chest PA and Lateral IMPRESSION: No radiographic evidence of acute cardiopulmonary disease Reading Location: [facility] CC: MACHINE FITTER-C Sandy Prakash; Dr. Ruba Melo MD Dog Daycare Provider: Signed Normal [facility] Urine Cultureon 08-13-2024 URC Klebsiella pneumonia e sp pneum [place]ley Count >100,000 Klebsiella pneumoniae sp pneum: REACTION [...] TMP SMX Islt KARL <=20 S Normal [facility] Comment on above: Performed By: #### M 100.2209 #### [facility] [address] [place], [place], [address] CNOVon 04-28-2024 CNOV Office Visit (UCWSTR ) DEVI LUIS ([id number]) 1960 F Date Time Provider Department 04/28/24 7:15 AM DALLIN CABRERA UCWSTR During your visit today, we recorded the following information about you: Temperature Pulse Respiration Blood pressure 98.9 degrees 88/minute 16/minute 110/64 Weight 87.9 kg Dallin Cabrera APRN.CNP 04/28/2024 9:03 AM Signed This note was created using [employer]. Subjective Devi Luis is a 63 year [...] history is provided by the patient. No pastrycook's assistant was used. Sinus Problem This is a [...] or ral (more content not included)... Normal [facility] XR CHEST 2V FRONTAL/LATon XR CHEST [...] raising concern for infection/pneumonia. Please clinically correlate. Dog Daycare Provider: ISAMAR Transcribe Date/Time: Apr 28 2024 8:19A Dictated by : KINA DAVIS MD This examination was interpreted and the report reviewed and electronically signed by: KINA DAVIS MD on Apr 28 2024 8:20AM EST [id number] Normal [facility] XR Chest PA and Lateralon IMPRESSION: Small opacities in the bilateral lungs, raising concern for infection/pneumonia. Please clinically correlate. Dog Daycare Provider: PSCJorge Alberto Transcribe Date/Time: Apr 28 2024 [...] raising concern for infection/pneumonia. Please clinically correlate. Dog Daycare Provider: ISAMAR Transcribe Date/Time: Apr 28 2024 8:19A Dictated by : KINA DAVIS MD This examination was interpreted and the report reviewed and electronically signed by: KINA DAVIS MD on Apr 28 2024 8:20AM EST [facility] Radiology Study observation (narrative) [facility] XR Chest PA and LateralOrder ed By: Ccf Provider on 04-28-2024 [facility] Vital Signs Date Time Vital Sign Value Performing Clinician Serg saenz 04-28-2024 07:20-0400 Body temperature 98.91 [degF] Dallin Cabrera COLD PRESS LOADER.LOFT WORKER HEAD Work Phone: [facility] 04-28-2024 07:20-0400 Body weight 87.9 kg Dallin Cabrera COLD PRESS LOADER.LOFT WORKER HEAD Work Phone: [facility] 04-28-2024 07:20-0400 Diastolic blood pressure 64 mm[Hg] Dallin Cabrera COLD PRESS LOADER.LOFT WORKER HEAD Work Phone: [facility] 04-28-2024 07:20-0400 Heart rate 88 /min Dallin Cabrera COLD PRESS LOADER.LOFT WORKER HEAD Work Phone: [facility] 04-28-2024 07:20-0400 Respiratory rate 16 /min Dallin Cabrera COLD PRESS LOADER.LOFT WORKER HEAD Work Phone: [facility] 04-28-2024 07:20-0400 SaO2% (BldA) [Mass fraction] 94 % Dallin Cabrera COLD PRESS LOADER.LOFT WORKER HEAD Work Phone: [facility] 04-28-2024 07:20-0400 Systolic blood pressure 110 mm[Hg] Dallin Cabrera COLD PRESS LOADER.LOFT WORKER HEAD Work Phone: [facility] Encounters Encounter Date Encounter Type Care Provider Facility Start: 06-17-2025 End: 06-17-2025 ambulatory [facility] Facility:[facility] Start: 11-24-2024 End: 11-24-2024 ambulatory [facility] Facility:[facility] Start: 08-11-2024 End: 08-11-2024 ambulatory [facility] Facility:[facility] Start: 04-28-2024 End: 04-28-2024 Subsequent hospital visit by physician Xr [facility] Work Phone: Radiology Comment on above: Acute cough [R05.1] Start: 04-28-2024 End: 04-28-2024 ambulatory [facility] Facility:[facility] Start: 04-28-2024 End: 04-28-2024 Patient encounter procedure Dallin Cabrera COLD PRESS LOADER.LOFT WORKER HEAD Work Phone: [facility] Comment on above: Acute cough (Primary [...] 06-08-2024 Covid-19 Vaccine () Covid-19 Vaccine () [facility] Start: 06-08-2024 Influenza vaccination Influenza Vacc ine (#1) [facility] Start: 10-08-2023 Advance Directive Discussion Advance Directive Discussion [facility] Start: 10-08-2023 Behavioral Health Screening Behavioral Health Screening [facility] Start: 2023 Pneumococcal Vaccine : 65+ (1 of 1 - PCV) Pneumococcal Vaccine: 65+ (1 of 1 - PCV) [facility] Start: 2023 Screening for osteoporosis Bone Density Screening [facility] Start: 06-08-2023 Covid-19 Vaccine ( season) Covid-19 Vaccine ( season) [facility] Start: 2018 RSV Vaccine (1 - 1-d ose 60+ series) RSV Vaccine (1 - 1-dose 60+ series) [facility] Start: 2008 Shingrix Vaccine (1 of 2) Shingrix V accine (1 of 2) [facility] Start: 2003 Diabetes Screening Diabetes Screenin g [facility] Start: 2003 Lipid panel Lipid Screening [facility] Start: 2003 Screening for malign ant neoplasm of colon [facility] Start: 1998 Screening for malign ant neoplasm of breast Mammogram Screening [facility] Start: 1977 Urine microalbumin profile DTaP,Tdap,Td Vaccine (1 - Tdap) [facility] Start: 1976 Anxiety Screening Anxiety Screening [facility] Start: 1976 Depression Screening Depression Scre ening [facility] Start: 1976 Hepatitis C screening Hepatitis C Sc reening [facility] Start: 1976 HIV screening HIV Screening [facility] Payers Date Payer Category Payer Self-pay 2024 Medicare MMO MEDICARE MMO [employer] HMO [id number] 2024-Present [phone] [address] [place] [address] HMO [id number] 2024 Unknown [id number] Unknown [id number] Unknown [id number] Unknown [id number] Social History Date Type Detail Facility Tobacco smoking stat [facility] Tobacco smoking consumption unknown [facility] Start: 1960 Sex Assigned At Not on file [facility] Gender identity Not on file [facility] in History of Present illness Narrative 04-28-2024 [...] PATIENT PRESENTS WITH AN IMPLANTABLE OR ATTACHED MUSHROOM GROWTH MEDIA MIXER: No RADIOLOGY DEPARTMENT: General X-ray: Exam(s) Completed: Chest X-Ray PERIPHERAL IV DATA: Not applicable SIGNED BY: RT Jose(Vahe) April 28, 2024 8:11 AM documented in this encounter [facility] Progress note 04-28-2024 Note Date & Type Note Facility 04-28-2024 Note HNO ID: [id number] Author: CATHY LAMB RT(R) Service: Radiology Author [...] PATIENT PRESENTS WITH AN IMPLANTABLE OR ATTACHED MUSHROOM GROWTH MEDIA MIXER: No RADIOLOGY DEPARTMENT: General X-ray: Exam(s) Completed: Chest X-Ray PERIPHERAL IV DATA: Not applicable SIGNED BY: RT Jose(R) April 28, 2024 8:11 AM [facility] Progress note 04-28-2024 Note Date & Type Note Facility 04-28-2024 Note HNO ID: [id number] Author: DALLIN CABRERA APRN.LOFT WORKER HEAD Service: ? Author Type: Nurse Practitioner Type: [...] history is provided by the patient. No pastrycook's assistant was used. Sinus Problem This is a [...] or rebound. Hernia (more content not included)... [facility] History of Present illness Narrative 04-28-2024 Dallin Cabrera APRN.[facility] - 04/28/2024 7:23 AM EDT Note Date & Type Note Facility 04-28-2024 History of Presen t illness Narrative This note was created using [employer]. Subjective Devi Luis is a 63 year [...] history is provided by the patient. No pastrycook's assistant was used. Sinus Problem This is a [...] placing hydrogen peroxide in ear Dallin Cabrera APRN.LOFT WORKER HEAD documented in this encounter [facility] Evaluation note Note Date & Type Note Facility Evaluation note Diagnosis Acute cough- Primary Pneumonia of both lungs due to infectious organism, unspecified part of lung Acute otitis externa of both ears, unspecified type Acute cough documented in this encounter [facility] Evaluation note Note Date & Type Note Facility Evaluation note Diagnosis Acute cough documented in this encounter [facility] Summary Purpose Family History No Family History [...] or prosecute any alcohol or drug abuse patient.[facility] the event this information is protected by the Federal Confidentiality of Alcohol and Drug Abuse Patient Records regulations: The Federal rules restrict any use of the information to criminally investigate or prosecute any alcohol or drug abuse patient.[facility] Reason for Visit (unrecogniz ed section and content) Reason Comments Sinus Problem sinus pressure, drai nage, bilateral ear pain x 1 month Care Teams (unrecognized sec tion and content) Machine Plate Stacker Relationship Specialty Start Date End Date Ruba Melo MD [address] [place] [address] PCP - General Family Medicine 04/28/24 Machine Plate Stacker Relationship Specialty Start Date End Date Ruba Melo MD [address] [place] [address] PCP - General Family Medicine 04/28/24 INFORMATION SOURCE (unrecogn ized section and content) DATE CREATED AUTHOR 04/30/2024 [facility] DATE CREATED AUTHOR AUTHOR'S ALEXIS ACOSTA 06/28/2025 [facility] FOR RECORDS PERTAINING TO PATIENTS WHO ARE [...] BE BASED ON THE PRIMARY CLINICAL RECORDS. [employer] [facility]. provides no warranty or guarantee of the accuracy or completeness of information in this document.
== END | disposition home or self-care (01) ==
LOC: LABSPEC 18:01
PROVIDERS: PCP Family Medicine; Visit Provider Family Medicine
DX: R82.90 Unspecified abnormal findings in urine (principal)
CPT/HCPCS: 87086; 87088

== ENCOUNTER → 2025-08-06 | Outpatient (CLI) | payer MEDICARE, SELFPAY | END | disposition home or self-care (01) | LOC: LABSPEC 12:41 | PROVIDERS: PCP Family Medicine; Referring Provider Family Medicine; Visit Provider Family Medicine | DX: R30.0 Dysuria (principal) | CPT/HCPCS: 87077; 87086; 87088; 87186 ==

== ENCOUNTER → 2025-08-10 | Outpatient (CLI) | payer MEDICARE, SELFPAY ==
--- NOTE | 2025-08-10 16:05 | CT_ITS ---
PROCEDURE: CT/CT Chest, Abd, Pel w/Contrast
== END | disposition home or self-care (01) ==
LOC: CT 16:04
PROVIDERS: PCP Family Medicine; Referring Provider Internal Medicine Medical Oncology; Visit Provider Internal Medicine Medical Oncology
DX: C50.411 Malignant neoplasm of upper-outer quadrant of right female breast (principal)
CPT/HCPCS: 71260; 74177; Q9967

== ENCOUNTER → 2025-08-13 | Outpatient (CLI) | payer MEDICARE, SELFPAY ==
--- NOTE | 2025-08-13 07:52 | NM_ITS ---
PROCEDURE: BONE SCAN WHOLE BODY 08/13/2025 REASON FOR EXAM: BREAST CA-STAGING TECHNIQUE: Procedure Code: NMBO Modality: NM Procedure: BONE SCAN WHOLE BODY Delayed whole-body bone scan with anterior and posterior views. RADIOPHARMACEUTICAL: 27.3 mCi Technetium-99m MDP IV COMPARISON: None. FINDINGS: Mild increased uptake is seen of the upper sternum, [id number]-[id number]-[id number]-left, of uncertain significance. Mild degenerative changes of the spine are seen. No additional findings are seen to suggest the presence of osseous metastatic disease. NM/Bone Scan Whole Body IMPRESSION: Mild increased uptake is seen of the upper sternum, [id number]-[id number]-noog-left, of uncertain significance. This may represent simply degenerative changes, but cannot exclude additional processes; consider further evaluation with plain film or CT imaging. Reading Location: [place] [address]
== END | disposition home or self-care (01) ==
LOC: NM 07:50
PROVIDERS: PCP Family Medicine; Referring Provider Internal Medicine Medical Oncology; Visit Provider Internal Medicine Medical Oncology
DX: C50.411 Malignant neoplasm of upper-outer quadrant of right female breast (principal)
CPT/HCPCS: 78306; A9503

== ENCOUNTER → 2025-09-28 | Outpatient (CLI) | payer MEDICARE, SELFPAY ==
[2025-09-28 16:11] LABS: Cholesterol 271 mg/dL (<=200); Low Density Lipoprotein Calc. 189 mg/dL; Triglycerides 146 mg/dL; Very Low Density Lipoprotein 29 mg/dL (5-40); Vitamin D,25 Hydroxy 17.4 ng/mL (30-100); cholesterol:hdl ratio screen 4.87
[2025-09-28 16:22] LABS: AST(SGOT) 24 U/L (<=31); Alanine Aminotransfer ALT/SGPT 21 U/L (<=34); Albumin, Serum 4.3 g/dL (3.4-4.8); Alkaline Phosphatase 81 U/L (35-104); Anion Gap 9 (7-18); BUN 16 mg/dL (4-19); BUN/Creat Ratio 17.8 RATIO (10-20); Calcium,Total 9.2 mg/dL (7.6-11.0); Carbon Dioxide 26.5 mmol/L (20.0-29.0); Chloride 103 mmol/L (96-106); Globulin 2.5 g/dL (2.2-4.2); Glucose 110 mg/dL (70-99); Potassium 4.3 mmol/L (3.5-5.1)
--- OUTSIDE RECORDS SUMMARY | 2025-09-28 20:23 | XMS RPT_ITS | CCD ---
Author Organization [facility] CliniSysd Care Team Providers Care Camp Manager Name Role Phone Ruba Melo MD Primary Care Provider RUBA MELO Primary Care Unavailable DALLIN CABRERA Referring Unavailable RUBA MELO Primary Care Unavailable Lorie MAKI, Dr. Yeh Primary Care Physician Dr. Ruba Melo MD Attending Physician Dr. Ruba Melo MD Referring Provider [phone] Dr. Ruba Melo MD Primary Care Physician Dr. Ruba Melo MD Attending Physician Dr. Ruba Melo MD Referring Provider Darby Aparicio LPN Attending Physician Unavailtomas Castaneda MD, Dr. Corona Attending Physician Dr. Cj Castaneda MD Referring Provider [phone] Ruba Melo Primary Care Unavailable Darby Aparicio Attending Unavailable Cj Castaneda Attending Unavailable Lorie, Ruba Primary Care Unavailable Lorie Ruba Referring Unavailable Lorie Ruba Primary Care Unavailable Cj Castaneda Attending Unavailable Ruba Melo Referring Unavailable Lorie, Ruba Primary Care Unavailable Ruba Melo Attending Unavailable Lorie, Ruba Referring Unavailable Lorie, Ruba Primary Care Unavailable Cj Castaneda Referring Unavailable Cj Castaneda Attending Unavailable Lorie, Ruba Primary Care Unavailable Cj Castaneda Referring Unavailable Cj Castaneda Attending Unavailable Cj Castaneda Referring Unavailable Lorie, Ruba Primary Care Unavailable Cj Castaneda Attending Unavailable Ruba Melo Primary Care Unavailable Sandy Prakash Attending Unavailable Sandy Prakash Referring Unavailable Ruba Melo Primary Care Unavailable Ruba Melo Attending Unavailable Ruba Melo Referring Unavailable Ruba Melo Primary Care Unavailable Ruba Melo Attending Unavailable Allergies Allergy Classification Reported Allergen(s) Allergy Type Date of Onset Reaction(s) Facility (5 sources) Amitriptyline; Translations: [AMITRIPTYLINE] Drug Allergy 04-28-20 24 Shortness of Breath [facility] (6 sources) Shellfish; Translations: [SHELLFISH DERIVED] Drug Intolerance 04-28-20 24 GI Upset [facility] (1 source) Amitriptyline Drug Allergy 08-04-20 [facility] Repository Medications Current Medications Medication Drug Class(es) Dates Sig (Normalized) Sig (Original) [id number] 200 actuat albuterol 0.09 mg/actuat metered dose inhaler (4 sources) beta2-Adrenergic Agonist Start: 05-05-2024 Start: 03-18-2024 albuterol HFA (PROVENTIL HFA, VENTOLIN HFA) 90 mcg/actuation inhaler 03/18/2024 Active amoxicillin 875 mg / clavulanate 125 mg oral tablet (1 source) Penicillin-class Antibacterial Start: 04-28-2024 End: 05-03-2024 take 1 tablet by mouth twice daily amoxicillin-clavulanate potassium (AUGMENTIN) 875-125 mg per tablet Take 1 tablet by mouth two times a day for 5 days. 10 tablet 0 04/28/2024 05/03/2024 Active anastrozole 1 mg oral tablet (4 sources) Aromatase Inhibitor Start: 03-16-2024 take 1 tablet by mouth once daily azelastine hydrochloride 0.137 mg/actuat metered dose nasal spray (4 sources) Histamine-1 Receptor Antagonist Start: 05-05-2024 Start: 03-16-2024 azelastine 0.1 % nasal spray 03/16/2024 Active Beclomethasone Dipropionate (2 sources) Corticosteroid Start: 07-27-2025 take 80 ug by inhalation twice daily as needed Start: 07-21-2025 End: 07-27-2025 take 80 ug by inhalation twice daily Beclomethasone Dipropionate (Qvar Redihaler) 80 mcg/actuation HFA aerosol breath activated Discontinued 1 NMA INHALATION TWICE A DAY July 20, 2025 11:00pm July 27, 2025 2:12pm benzonatate 100 mg oral capsule (1 source) Non-narcotic Antitussive Start: 04-28-2024 take 1 capsule by mouth every eight hours as needed benzonatate (TESSALON PERLES) 100 mg capsule Take 1 capsule by mouth three times a day as needed for cough. 21 capsule 0 04/28/2024 Active ciprofloxacin 3 mg/ml / dexamethasone 1 mg/ml otic suspension (1 source) Corticosteroid, Quinolone Antimicrobial Start: 04-28-2024 ciprofloxacin-de xAMETHasone (CIPRODEX) 0.3-0.1 % otic suspension Use 4 Drops in both ears two times a day. 7.5 mL 0 04/28/2024 Active diphenhydrAMINE hydrochloride 25 mg oral capsule (2 sources) Histamine-1 Receptor Antagonist Start: 05-05-2024 take 1 capsule by mouth at bedtime as needed doxycycline hyclate 100 mg oral tablet (1 source) Tetracycline-class Drug Start: 04-28-2024 End: 05-05-2024 take 1 tablet by mouth twice daily doxycycline (VIBRA-TABS) 100 mg tablet Take 1 tablet by mouth two times a day for 7 days. 14 tablet 0 04/28/2024 05/05/2024 Active FLUoxetine 20 mg oral capsule (4 sources) Serotonin Reuptake Inhibitor Start: 02-06-2024 take 1 capsule by mouth twice daily in the morning fluticasone propionate 0.05 mg/actuat metered dose nasal spray (2 sources) Corticosteroid Start: 05-05-2024 levothyroxine sodium 0.05 mg oral capsule (4 sources) l-Thyroxine Start: 05-05-2024 take 1 capsule by mouth once daily Start: 02-06-2024 levothyroxine (SYNTHROID) 50 mcg tablet 02/06/2024 Active losartan potassium 50 mg oral tablet (4 sources) Angiotensin 2 Receptor Lauren Start: 02-06-2024 take 1 tablet by mouth once daily predniSONE 10 mg oral tablet (1 source) Start: 04-28-2024 predniSONE (DELTASONE) 10 mg tablet Take 4 tabs daily for 3 days, then 2 tabs daily for 3 days, then 1 tab daily for 3 days with food. 21 tablet 0 04/28/2024 Active traZODone hydrochloride 50 mg oral tablet (4 sources) Serotonin Reuptake Inhibitor Start: 05-05-2024 take 2 tablets by mouth once daily Start: 02-06-2024 traZODone (MILLICENT YREL) 50 mg tablet 02/06/2024 Active Completed/Discontinued Medications Medication Drug Class(es) Dates Sig (Normalized) Sig (Original) 60 actuat ciclesonide 0.08 mg/actuat metered dose inhaler (4 sources) Start: 05-05-2024 End: 07-21-2025 Ciclesonide (Alvesco) 80 mcg/actuation HFA aerosol inhaler Discontinued 1 NMA INHALATION TWICE A DAY May 04, 2024 11:00pm July 21, 2025 10:13am Start: 03-19-2024 ALVESCO 80 mcg /actuation inhaler 03/19/2024 Active omeprazole 20 mg delayed release oral capsule (2 sources) Proton Pump Inhibitor Start: 05-05-2024 End: 07-21-2025 take 1 capsule by mouth once daily Omeprazole 20 mg capsule,delayed release(DR/EC) Discontinued 20 mg PO DAILY May 04, 2024 11:00pm July 21, 2025 10:14am phentermine hydrochloride 37.5 mg oral capsule (1 source) Sympathomimetic Amine Anorectic Start: 07-21-2025 End: 07-27-2025 take 1 capsule by mouth once daily 30 minutes after breakfast Phentermine 37.5 mg capsule Discontinued 37.5 mg PO daily July 20, 2025 11:00pm July 27, 2025 2:11pm must administer 30 minutes before or 1-2 hours after breakfast Tirzepatide (Weight Loss) (1 source) Start: 07-21-2025 End: 07-27-2025 Tirzepatide (Weight Loss) (Zepbound) 2.5 mg/0.5 mL pen injector Discontinued 2.5 mg SC EVERY WEEK July 20, 2025 11:00pm July 27, 2025 2:11pm for 4 weeks Problems Problem Classification Problem Date Documented Date Episodic/Chronic Anxiety disorders (5 sources) Anxiety; Translations: [Anxiety disorder, unspecified] Onset: 08-04-2025 05-05-2024 Chronic Asthma (2 sources) Asthma; Translations: [Unspecified asthma, uncomplicated] 05-05-2024 Chronic Cancer of breast (7 sources) Malignant tumor of breast ; Translations: [Malignant neoplasm of unspecified site of right female breast] Onset: 07-27-2025 08-04-2025 Chronic Comment on above: Right breast lobular carcinoma status post right lumpectomy, mammoplasty, tumor size 3 cm, grade 2, sentinel lymph nodes 2 out of 3 with micrometastasis. ER/MO positive HER2 negative. Pathologic stage pT2 pN1mi. Prognostic stage IB. Oncotype DX recurrence score 15.Patient has been on Arimidex since August 2020. Last mammogram on 06/17/2025 was normal.Discussed disease and management with adjuvant hormonal therapy for 5 years or more depending on patient's choice, patient is concerned about metastatic disease. Tumor markers are negative. Disorders of lipid metabolism (2 sources) Hypercholesterolemia; Translations: [Pure hypercholesterolemia, unspecified] 05-05-2024 Chronic Esophageal disorders (2 sources) Gastroesophageal reflux disease; Translations: [Gastro-esophageal reflux disease without esophagitis] 05-05-2024 Chronic Essential hypertension (2 sources) Essential hypertension; Translations: [Essential (primary) hypertension] 05-05-2024 Chronic Genitourinary symptoms and ill-defined conditions (2 sources) Dysuria; Translations: [Unspecified abnormal findings in urine] Onset: 07-31-2025 Episodic Heart valve disorders (2 sources) Mitral valve prolapse; Translations: [Nonrheumatic mitral (valve) prolapse] 05-05-2024 Chronic Malignant neoplasm without specification of site (1 source) Malignant (primary) neoplasm, unspecified; Translations: [Malignant (primary) neoplasm, unspecified] Onset: 08-04-2025 Chronic Mood disorders (2 sources) Depressive disorder; Translations: [Depression] 05-05-2024 Chronic Other ear and sense organ disorders (1 [...] pneumonia; Translations: [Pneumonia, unspecified organism] 04-28-2024 Episodic Residual codes; unclassified (2 sources) History of hysterectomy for benign disease; Translations: [Acquired absence of both cervix and uterus] 05-05-2024 Episodic Comment on above: 1995 Residual codes; unclassified (1 source) Estrogen receptor positive status [ER+]; Translations: [Estrogen receptor positive status [ER+]] Onset: 08-04-2025 Episodic Residual codes; unclassified (1 source) Other specified postprocedural states; Translations: [Other specified postprocedural states] Onset: 08-04-2025 Episodic Spondylosis; intervertebral disc disorders; other back problems (2 sources) Cervical disc disorder; Translations: [Cervical disc disorder, unspecified, unspecified cervical region] 05-05-2024 Chronic Thyroid disorders (2 sources) Hypothyroidism; Translations: [Hypothyroidism, unspecified] 05-05-2024 Chronic Unclassified (1 source) Acute cough; Translations: [Acute cough] Onset: 04-28-2024 Unclassified (1 source) Cough, unspecified; Translations: [Cough, unspecified] Onset: 12-06-2024 Results Test Name Value Interpretation Reference Range Facility Bone Scan Whole Body 08-13 Bone Scan Whole Body [facility] Imaging Services [address] [place] [address] [id number] Bone Scan Whole Body MR#: [id number] Acct: [id number] Name: DEVI LUIS Rep #: [id number] : 1960 F 65 From: Amilcar Rooney PCP: Dr. Ruba Melo MD Status: [facility] CLI Study: Bone Scan Whole Body Date of Exam: 08/13/25 Exam# [id number] Ordering Dr: Cj Castaneda MD PROCEDURE: BONE SCAN WHOLE BODY 08/13/2025 REASON FOR EXAM: BREAST CA-STAGING TECHNIQUE: Procedure Code: NMBO Modality: NM Procedure: BONE SCAN WHOLE BODY Delayed whole-body bone scan with anterior and posterior views. RADIOPHARMACEUTICAL: 27.3 mCi Technetium-99m MDP IV COMPARISON: None. FINDINGS: Mild increased uptake is seen of the upper sternum, [id number]-left, of uncertain significance. Mild degenerative changes of the spine are seen. No additional findings are seen to suggest the presence of osseous metastatic disease. NM/Bone Scan Whole Body IMPRESSION: Mild increased uptake is seen of the upper sternum, [id number]-[id number]-left, of uncertain significance. This may represent simply degenerative changes, but cannot exclude additional processes; consider further evaluation with plain film or CT imaging. Reading Location: [place] [address] CC: Dr. Ruba Melo MD; Dr. Cj Castaneda MD Curator Of Education: Signed Normal [facility] CT Chest, Abd, Pel w/Contras ton 08-10-2025 CT Chest, Abd, Pel w/Contrast [facility] Imaging Services [address] [place] [address] [address] [address] Chest, Abd, Pel w/Contrast MR#: [id number] Acct: [id number] Name: DEVI LUIS Rep #: [id number] : 1960 F 65 From: Tenzin reyes MD PCP: Dr. Ruba Melo MD Status: REG CLI Study: CT Chest, Abd, Pel w/Contrast Date of Exam: Exam# [id number] Ordering Dr: Cj Castaneda MD PROCEDURE: CT CHEST, ABD, PEL W/CONTRAST 08/10/2025 REASON FOR EXAM: BREAST CA-IV ONLY Patient is status post right lumpectomy. TECHNIQUE: Chest, abdomen and pelvis CT with intravenous contrast. Coronal and Sagittal reconstruction series were provided. One or more dose reduction techniques were used (e.g., Automated exposure control, adjustment of the mA and/or kV according to patient size, use of iterative reconstruction technique. PATIENT PREPARATION: Per protocol ORAL CONTRAST TYPE: None. CONTRAST: Isovue 370 VOLUME: 95mL RADIATION DOSE SUMMARY: CTDlvol: 17 mGy DLP: 2000.46 mGycm COMPARISON: None FINDINGS: CT CHEST: Hardware: Surgical clips are seen in the right axilla. Postsurgical changes are seen in the right breast. Lymph nodes: No significant lymph nodes are seen. Heart and Vasculature: The heart is nonenlarged. Atherosclerotic calcifications of the thoracic aorta. Pulmonary arteries are unremarkable. Coronary artery calcification. Lungs and Airways: Increased linear markings are seen in the right middle lobe suggestive of possible scarring secondary to prior radiation therapy. Mild increased markings also seen in the peripheral lateral aspect of the lingular segment of the left upper lobe suggestive of scarring. No suspicious pulmonary nodule seen. No pulmonary consolidation or infiltration is seen. Pleura: No pleural effusion. Bones: Degenerative changes of the thoracic spine. CT ABDOMEN/PELVIS: Liver: Normal size. No mass. There is evidence of pneumobilia in the left intrahepatic biliary ducts in keeping with prior cholecystectomy. Gallbladder: Surgically absent. Spleen: Borderline splenomegaly. Pancreas: Diffuse fatty atrophy. Adrenals: Unremarkable. Kidneys: Subcentimeter cysts are seen in both kidneys. Bladder: Unremarkable Reproductive Organs: Status post hysterectomy. Bowel: Diverticulum in the 2nd portion of the duodenum. Appendix: Patient is status post appendectomy. Lymph nodes: Unremarkable. Vasculature: Mild diffuse atherosclerotic calcifications are noted. Peritoneum / Retroperitoneum: Mild increased markings within the mesenteric fat at the level of the root of the mesentery. This is a nonspecific finding and is in keeping with a renaldo peritoneum. Bones: Degenerative changes of the spine. CT/CT Chest, Abd, Pel w/Contrast IMPRESSION: No evidence of metastatic deposits. Status post cholecystectomy and hysterectomy. Borderline splenomegaly. Reading Location: [id number] CC: Dr. Ruba Melo MD; Dr. Cj Castaneda MD Curator Of Education: Signed Normal [facility] Urine Cultureon 08-08-2025 URC Klebsiella pneumonia e sp pneum [place] Count 11,000-25,000 Klebsiella pneumoniae sp pneum: REACTION Ampicillin Islt KARL Ampicillin+Sulbac Islt KARL 4 S Cefepime Islt KARL <=0.12 S cefTRIAXone Islt KARL <=0.25 S Ciprofloxacin Islt KARL 0.25 S B-Lactamase Extended Susc Islt NEG Gentamicin Islt KARL <=1 S levoFLOXacin Islt KARL 1 I Meropenem Islt KARL <=0.25 S Nitrofurantoin Islt KARL 64 I Pip+Tazo Islt KARL <=4 S TMP SMX Islt KARL 40 S Normal [facility] Comment on above: Performed By: #### M 100.2200 #### [facility] [address] [place], [address] Urine cultureOrdered By: Wayne Melo on 08-05-2025 Bacteria identified Cx Nom (U) Klebsiella pneumoniae sp pneum Abnormal [facility] Oncology Visit Reporton 07-09 Oncology Visit Report [facility] [place] [facility] [address] [place] [address] OFFICE VISIT Date of Service: 08/04/25 1454 MR#: [id number] Acct: [id number] Name: DEVI LUIS Rep #: [id number] : 1960 From: Cj Castaneda MD Age/Sex: 65/F Location: [facility] Status: Signed HPI Subjective Date of Service 08/04/25 Chief Complaint F/u for R breast cancer. History of Present Illness 65-year-old woman is referred for further management of right breast cancer. She was found to have an abnormal mammogram on 04/22/2020 in [facility]. She was found to have focal asymmetry in the upper outer quadrant of right breast. Ultrasound on 05/03/2020 showed 1.7 spiculated mass at the 11 o'clock position. She underwent ultrasound-guided core biopsy on 05/10/2020. Pathology showed invasive mammary carcinoma favor lobular, ER +95%, MO +100%, HER2 by IHC negative. She underwent right breast lumpectomy with sentinel node biopsy of the right axilla and bilateral breast reduction on 07/01/2020. Pathology showed right breast lumpectomy and axillary dissection invasive lobular carcinoma tumor size 3 cm margins negative, grade 2, lymph nodes 2 out of 3 positive for micrometastasis. Pathologic staging pT2 pN1 mi. Oncotype Dx recurrence score 15. She was diagnosed with right invasive lobular carcinoma, prognostic stage IB. She got adjuvant radiation therapy to the right breast from August 11, 2022 August 31, 2020. She then started adjuvant anastrozole in August 2020. She moved to the area and wants to follow-up here in [place]. Had blood work done and comes for follow up. She feels well. Anxious about cancer recurrence. [facility] Medical History Psoriatic arthritis Fibromyalgia Hypothyroid Asthma Essential (primary) hypertension Hx of breast cancer Mitral valve prolapse GERD (gastroesophageal reflux disease) Hypercholesterolemia Depression Anxiety Cervical disc disease Surgical History H/O rectocele repair H/O discectomy History of lumpectomy of right breast H/O breast biopsy History of cholecystectomy History of appendectomy Hx of hysterectomy for benign disease Hx of thyroidectomy Family History Mother Hypercholesteremia Diabetes COPD (chronic obstructive pulmonary disease) Hypertension Breast cancer Hyperglycemia Lung disease Father Lung cancer Sister Breast cancer Hypertension Social History Smoking Status: Former smoker alcohol intake: current alcohol intake frequency: holidays/special occasions only Alcohol type: wine substance use type: does not use Intake Vital Signs 07/27/25 15:09 08/04/25 14:57 Height 5 ft 6 in 5 ft 6 in Weight: 94.602 kg 95.51 kg BMI 33.6 34.0 BP 129/84 H 120/77 Blood Pressure Location Lt brachial Lt brachial Position Sitting Sitting Respiration 18 18 Pulse 79 90 Pulse Source Monitor Monitor Temp 97.7 F L 97.1 F L Temperature Source Temporal Artery Temporal Artery Pulse Oximetry (%) 96 98 Oxygen Delivery Method room air room air Intake Is patient in pain?: No Allergies amitriptyline Allergy (Severe, Verified 08/04/25 14:59) Anaphylaxis shellfish derived Allergy (Severe, Verified 08/04/25 14:59) Anaphylaxis Medications ???Medication ???Instructions ???Recorded ???Confirmed ???Type albuterol sulfate 90 mcg/actuation 2 puff inhalation Q4-6H PRN 04/0808/04/25 History aerosol inhaler anastrozole 1 mg tablet 1 mg PO DAILY 05/05/24 08/04/25 Hi story azelastine 137 mcg (0.1 %) nasal 2 spray intranasal BID 05/05/24 History spray diphenhydramine HCl 25 mg capsule 25 mg PO QHS PRN 05/05/24 5 History (Benadryl) fluoxetine 20 mg capsule 20 mg PO BID 05/05/24 08/04/25 His tory fluticasone propionate 50 1 spray intranasal BID 05/05/24 History mcg/actuation nasal spray,suspension levothyroxine 50 mcg capsule 50 mcg PO DAILY 05/05/24 08/04/25 History losartan 50 mg tablet 50 mg PO DAILY 05/05/24 08/04/25 H istory trazodone 50 mg tablet 100 mg PO DAILY 05/05/24 08/04/25 History beclomethasone dipropionate 80 1 inh inhalation BID PRN 07/27/25 08/04/25 History mcg/actuation HFA breath activated aerosol (Qvar RediHaler) Have you fallen in the past year?: No Central Venous Access Central Venous Access: No Laboratory Tests 07/27/25 16:00 WBC 6.7 Hgb 13.6 Hct 40.7 Plt Count 257 Carcinoembryonic Ag 1.8 CA 15-3 Antigen 22.4 CA 27-29 38.2 CA 125 Antigen 16.9 Exam Physical Exam Const alert, oriented x3 and no apparent distress Rianna (more content not included)... Normal [facility] CA 15-3on 07-29-2025 CA 15-3 22.4 U/mL Normal 0.0-25.0 [facility] Comment on above: Result Comment: [employer] Electrochemiluminescence Immunoassay (ECLIA) Values obtained with different assay methods or kits cannot be used interchangeably. Results cannot be interpreted as absolute evidence of the presence or absence of malignant disease. Performed at: [facility] [address], [place], [place] [id number] [employer] Machine Corder: Tai Baum PhD, Phone: [phone] Performed By: #### L 3100.2300, L3100.5000, L100.0100, L3100.5040, L504.2610, L3100.5030 ####[facility] [address] [place], [address] CA 27.29on 07-29-2025 CA 27.29 38.2 U/mL Normal 0.0-38.6 [facility] Comment on above: Result Comment: [facility] [employer] Immunochemiluminometric Methodology (ICMA) Values obtained with different assay methods or kits cannot be used interchangeably. Results cannot be interpreted as absolute evidence of the presence or absence of malignant disease. Performed By: #### L 3100.2300, L3100.5000, L100.0100, L3100.5040, L504.2610, L3100.5030 ####[facility] [address] [place], [address] Cancer Antigen 125on 025 CA 125 16.9 U/mL Normal 0.0-38.1 [facility] Comment on above: Result Comment: [employer] Electrochemiluminescence Immunoassay (ECLIA) Values obtained with different assay methods or kits cannot be used interchangeably. Results cannot be interpreted as absolute evidence of the presence or absence of malignant disease. Performed By: #### L 3100.2300, L3100.5000, L100.0100, L3100.5040, L504.2610, L3100.5030 ####[facility] [address] [place], [address] Carcinoembryonic Antigenon 1 CEA 1.8 ng/mL Normal 0.0-4.7 [facility] Comment on above: Result Comment: Nons mokers <3.9 Smokers <5.6 [employer] Electrochemiluminescence Immunoassay (ECLIA) Values obtained with different assay methods or kits cannot be used interchangeably. Results cannot be interpreted as absolute evidence of the presence or absence of malignant disease. Performed By: #### L 3100.2300, L3100.5000, L100.0100, L3100.5040, L504.2610, L3100.5030 ####[facility] [address] [place], [address] Absolute lymphocyte countOrd ered By: Cj Castaneda on 07-27-2025 Lymphocytes Auto (Unsp spec) [#/Vol] 1.61 10*3/uL 0.83-4.51 [facility] Absolute neutrophil countOrd ered By: Cj Castaneda on 07-27-2025 Neutrophils (Bld) [#/Vol] 4.1 10*3/uL 2.0-7.7 [facility] Automated blood erythrocyte countOrdered By: Cj Castaneda on 07-27-2025 RBC (Bld) [#/Vol] 4.65 10*6/uL Normal 4.2-5.4 [facility] Comment on above: Performed By: #### L 3100.2300, L3100.5000, L100.0100, L3100.5040, L504.2610, L3100.5030 #### [facility] [address] [place], [place], [id number] Automated blood hematocrit ( percentage)Ordered By: Cj Castaneda on 07-27-2025 Hematocrit (Bld) [Volume fraction] 40.7 % Normal 37-47 [facility] Comment on above: Performed By: #### L 3100.2300, L3100.5000, L100.0100, L3100.5040, L504.2610, L3100.5030 #### [facility] [address] [place], [place], [id number] Automated lymphocyte count a s percentage of total leukocytesOrdered By: Cj Castaneda on 07-27-2025 Lymphocytes/100 WBC Auto (Unsp spec) 24.0 % 19-41 [facility] Basophil percentageOrdered B y: Cj Castaneda on 07-27-2025 Basophils/100 WBC (Bld) 1.2 % High 0-1 [facility] Comment on above: Performed By: #### L 3100.2300, L3100.5000, L100.0100, L3100.5040, L504.2610, L3100.5030 #### [facility] [address] [place], [place], [id number] CA 15-3Ordered By: Cj nunez on 07-27-2025 CA 15-3 22.4 U/mL 0.0-25.0 [facility] Comment on above: [employer] El ectrochemiluminescence Immunoassay(ECLIA)Values obtained with different assay methods or kits cannotbe used interchangeably. Results cannot be interpreted asabsolute evidence of the presence or absence of malignantdisease.Performed at: [facility] [id number] Director: Tai Baum PhD, Phone: [phone] CA 27.29Ordered By: Cj mayes on 07-27-2025 CA 27.29 38.2 U/mL 0.0-38.6 [facility] Comment on above: Siemens Centaur Immu nochemiluminometric Methodology (ICMA)Values obtained with different assay methods or kits cannotbe used interchangeably. Results cannot be interpreted asabsolute evidence of the presence or absence of malignantdisease. CBC W/Diff, Automatedon 07-09 Absolute Lymph 1.61 X10 3/uL Normal 0.83-4.51 [facility] Comment on above: Performed By: #### L 3100.2300, L3100.5000, L100.0100, L3100.5040, L504.2610, L3100.5030 #### [facility] [address] [place], [address] Absolute Neut 4.1 X10 3/uL Normal 2.0-7.7 [facility] Comment on above: Performed By: #### L 3100.2300, L3100.5000, L100.0100, L3100.5040, L504.2610, L3100.5030 #### [facility] [address] [place], [address] IG% 0.300 Normal 0.0-0.9 [facility] Comment on above: Result Comment: IG% - Immature Granulocytes (promyelocytes, myelocytes and metamyelocytes) > 1% indicates that a LEFT SHIFT is Present. Performed By: #### L 3100.2300, L3100.5000, L100.0100, L3100.5040, L504.2610, L3100.5030 #### [facility] [address] [place], [address] Lymphocytes/100 WBC (Bld) 24.0 % Normal 19-41 [facility] Comment on above: Performed By: #### L 3100.2300, L3100.5000, L100.0100, L3100.5040, L504.2610, L3100.5030 #### [facility] [address] [place], [address] Nucleated RBC (Bld) [#/Vol] 0 10*3/uL Normal 0-5 [facility] Comment on above: Performed By: #### L 3100.2300, L3100.5000, L100.0100, L3100.5040, L504.2610, L3100.5030 #### [facility] [address] [place], [address] RDW SD 41.8 fl Normal 35.1-43.9 [facility] Comment on above: Performed By: #### L 3100.2300, L3100.5000, L100.0100, L3100.5040, L504.2610, L3100.5030 #### [facility] [address] [place], [address] Cancer antigen 125 (CA-125) measurementOrdered By: Cj Castaneda on 07-27-2025 Cancer antigen 125 (CA-125) measurement 16.9 U/mL 0.0-38.1 [facility] Comment on above: [facility] [employer] El ectrochemiluminescence Immunoassay(ECLIA)Values obtained with different assay methods or kits cannotbe used interchangeably. Results cannot be interpreted asabsolute evidence of the presence or absence of malignantdisease. Eosinophil percentageOrdered By: Cj Castaneda on 07-27-2025 Eosinophils/100 WBC (Bld) 6.7 % High 0-5 [facility] Comment on above: Performed By: #### L 3100.2300, L3100.5000, L100.0100, L3100.5040, L504.2610, L3100.5030 #### [facility] [address] [place], [place], [id number] Erythrocyte distribution wid th ratioOrdered By: Cj Castaneda on 07-27-2025 Erythrocyte distribution width (RBC) [Ratio] 13.1 % Normal 11.6-14.6 [facility] Comment on above: Performed By: #### L 3100.2300, L3100.5000, L100.0100, L3100.5040, L504.2610, L3100.5030 #### [facility] [address] [place], [place], [phone] Erythrocyte distribution wid th standard deviationOrdered By: Cj Castaneda on 07-27-2025 Erythrocyte distribution width (RBC) [Ratio] 41.8 fl 35.1-43.9 [facility] Hemoglobin measurementOrdere d By: Cj Castaneda on 07-27-2025 Hemoglobin (Bld) [Mass/Vol] 13.6 g/dL Normal 12.0-15.0 [facility] Comment on above: Performed By: #### L 3100.2300, L3100.5000, L100.0100, L3100.5040, L504.2610, L3100.5030 #### [facility] [address] [place], [place], [id number] Immature granulocytes/100 WB C Auto (Bld)Ordered By: Cj Castaneda on 07-27-2025 Immature granulocytes/100 WBC (Bld) 0.300 % 0.0-0.9 [facility] Comment on above: IG% - Immature Granu locytes (promyelocytes, myelocytes and metamyelocytes) > 1% indicates that a LEFT SHIFT is Present. LDHon 07-27-2025 LDH 220 U/L Normal 84-246 [facility] Comment on above: Order Comment: 1 Performed By: #### L 3100.2300, L3100.5000, L100.0100, L3100.5040, L504.2610, L3100.5030 ####[facility] [address] [place], [address] Lactate dehydrogenase (LDH) measurementOrdered By: Cj aCstaneda on 07-27-2025 LDH [Catalytic activity/Vol] 220 U/L 84-246 [facility] MCV (mean corpuscular volume ) determinationOrdered By: Cj Castaneda on 07-27-2025 MCV (RBC) [Entitic vol] 87.5 fL Normal 81-99 [facility] Comment on above: Performed By: #### L 3100.2300, L3100.5000, L100.0100, L3100.5040, L504.2610, L3100.5030 #### [facility] [address] [facility] [place], [address] Mean corpuscular hemoglobin (MCH) determinationOrdered By: Cj Castaneda on 07-27-2025 MCH (RBC) [Entitic mass] 29.2 pg Normal 27.0-32.0 [facility] Comment on above: Performed By: #### L 3100.2300, L3100.5000, L100.0100, L3100.5040, L504.2610, L3100.5030 #### [facility] [address] [place], [address] Mean corpuscular hemoglobin concentration (MCHC) determinationOrdered By: Cj Castaneda on 07-27-2025 MCHC (RBC) [Mass/Vol] 33.4 g/dL Normal 32-[address] [facility] Comment on above: Performed By: #### L 3100.2300, L3100.5000, L100.0100, L3100.5040, L504.2610, L3100.5030 #### [facility] [address] [facility] [place], [address] Mean platelet volume determi nationOrdered By: Cj Castaneda on 07-27-2025 Platelet mean volume (Bld) [Entitic vol] 10.3 fL Normal 6.2-12.0 [facility] Comment on above: Performed By: #### L 3100.2300, L3100.5000, L100.0100, L3100.5040, L504.2610, L3100.5030 #### [facility] [address] [place], [address] Monocyte percentageOrdered B y: Cj Castaneda on 07-27-2025 Monocytes/100 WBC (Bld) 6.4 % Normal 0-10 [facility] Comment on above: Performed By: #### L 3100.2300, L3100.5000, L100.0100, L3100.5040, L504.2610, L3100.5030 #### [facility] [address] [place], [address] NATERAon 07-27-2025 NATURA SEE SCANNED REPORT Normal [facility] Comment on above: Performed By: #### L 900.0098 #### [facility] [address] [place], [place], [address] (163) Neutrophil percentageOrdered By: Cj Castaneda on 07-27-2025 Neutrophils/100 WBC (Bld) 61.4 % Normal 47-70 [facility] Comment on above: Performed By: #### L 3100.2300, L3100.5000, L100.0100, L3100.5040, L504.2610, L3100.5030 #### [facility] [address] [place], [place], [address] (940) Nucleated red blood cell per centageOrdered By: Cj Castaneda on 07-27-2025 Nucleated RBC/100 WBC (Bld) [Ratio] 0 % 0-5 [facility] Oncology Visit Reporton - Oncology Visit Report [facility] [address] [place] [address] OFFICE VISIT Date of Service: 07/27/25 1508 MR#: [id number] Acct: [id number] Name: DEVI LUIS Rep #: [id number] : 1960 From: Cj Castaneda MD Age/Sex: 65/F [place] [facility] Status: Signed HPI Subjective Date of Service 07/27/25 Chief Complaint F/u for R breast cancer. History of Present Illness 65-year-old woman is referred for further management of right breast cancer. She was found to have an abnormal mammogram on 04/22/2020 in [facility]. She was found to have focal asymmetry in the upper outer quadrant of right breast. Ultrasound on 05/03/2020 showed 1.7 spiculated mass at the 11 o'clock position. She underwent ultrasound-guided core biopsy on 05/10/2020. Pathology showed invasive mammary carcinoma favor lobular, ER +95%, MO +100%, HER2 by IHC negative. She underwent right breast lumpectomy with sentinel node biopsy of the right axilla and bilateral breast reduction on 07/01/2020. Pathology showed right breast lumpectomy and axillary dissection invasive lobular carcinoma tumor size 3 cm margins negative, grade 2, lymph nodes 2 out of 3 positive for micrometastasis. Pathologic staging pT2 pN1 mi. Oncotype Dx recurrence score 15. She was diagnosed with right invasive lobular carcinoma, prognostic stage IB. She got adjuvant radiation therapy to the right breast from August 11, 2022 August 31, 2020. She then started adjuvant anastrozole in August 2020. She moved to the area and wants to follow-up here in [place]. She feels well [facility] Medical History Psoriatic arthritis Fibromyalgia Hypothyroid Asthma Essential (primary) hypertension Hx of breast cancer Mitral valve prolapse GERD (gastroesophageal reflux disease) Hypercholesterolemia Depression Anxiety Cervical disc disease Surgical History H/O rectocele repair H/O discectomy History of lumpectomy of right breast H/O breast biopsy History of cholecystectomy History of appendectomy Hx of hysterectomy for benign disease Hx of thyroidectomy Family History Mother Hypercholesteremia Diabetes COPD (chronic obstructive pulmonary disease) Hypertension Breast cancer Hyperglycemia Lung disease Father Lung cancer Sister Breast cancer Hypertension Social History Smoking Status: Former smoker alcohol intake: current alcohol intake frequency: holidays/special occasions only Alcohol type: wine substance use type: does not use ROS Constitutional Constitutional: Reports systems reviewed and no addt'l complaints, except as documented Eyes Eyes: Reports systems reviewed and no addt'l complaints, except as documented ENT HEENT: Reports systems reviewed and no addt'l complaints, except as documented Cardiovascular Cardiovascular: Reports systems reviewed and no addt'l complaints, except as documented Respiratory/Chest Respiratory/Chest: Reports systems reviewed and no addt'l complaints, except as documented Gastrointestinal Gastrointestinal: Reports systems reviewed and no addt'l complaints, except as documented Genitourinary Genitourinary: Reports systems reviewed and no addt'l complaints, except as documented Musculoskeletal Musculoskeletal: Reports systems reviewed and no addt'l complaints, except as documented Integumentary Integumentary: Reports systems reviewed and no addt'l complaints, except as documented Neurologic Neurologic: Reports systems reviewed and no addt'l complaints, except as documented Psychiatric Psychiatric: Reports systems reviewed and no addt'l complaints, except as documented Endocrine Endocrinology: Reports systems reviewed and no addt'l complaints, except as documented Hematologic/Lymphatic Hematologic/Lymphatic: Reports systems reviewed and no addt'l complaints, except as documented Allergic/Immunologic Allergic/Immunologic: Reports systems reviewed and no addt'l complaints, except as documented Intake Vital Signs 07/27/25 15:09 Height 5 ft 6 in Weight: 94.602 kg BMI 33.6 BP 129/84 H Blood Pressure Location Lt brachial Position Sitting Respiration 18 Pulse 79 Pulse Source Monitor Temp 97.7 F L Temperature Source Temporal Artery Pulse Oximetry (%) 96 Oxygen Delivery Method room air Intake Accompanied by: Self Is patient in pain?: No Allergies amitriptyline Allergy (Severe, Verified 07/27/25 15:10) Anaphylaxis shellfish derived Allergy (Severe, Verified 07/27/25 15:10) Anaphylaxis Medications ???Medication ???Instructions ???Recorded ???Confirmed ???Type albuterol sulfate 90 mcg/actuation 2 p (more content not included)... Normal [facility] Platelet countOrdered By: Shikha Castaneda on 07-27-2025 Platelets (Bld) [#/Vol] 257 10*3/uL Normal 150-450 [facility] Comment on above: Performed By: #### L 3100.2300, L3100.5000, L100.0100, L3100.5040, L504.2610, L3100.5030 #### [facility] [address] [place], [address] Serum or plasma carcinoembry onic antigen measurement (mass/volume)Ordered By: Cj Castaneda on 07-27-2025 Carcinoembryonic Ag [Mass/Vol] 1.8 ng/mL 0.0-4.7 [facility] Comment on above: Nonsmokers <3.9 Smok ers <5.6[employer] Electrochemiluminescence Immunoassay(ECLIA)Values obtained with different assay methods or kitscannot be used interchangeably. Results cannot beinterpreted as absolute evidence of the presence orabsence of malignant disease. White blood cell (WBC) count Ordered By: Cj Castaneda on 07-27-2025 WBC (Bld) [#/Vol] 6.7 10*3/uL Normal 4.4-11.0 [facility] Comment on above: Performed By: #### L 3100.2300, L3100.5000, L100.0100, L3100.5040, L504.2610, L3100.5030 #### [facility] [address] [place], [address] Urine Cultureon 07-10-2025 URC Mixed Gram Pos Gram Neg Org [place] Count 50,000-80,000 MIXC Mixed contaminants. Submit a new specimen if indicated. Normal [facility] Comment on above: Performed By: #### M 100.2200 #### [facility] [address] [place], [address] Urine cultureOrdered By: Wayne Melo on 07-07-2025 Bacteria identified Cx Nom (U) Mixed Gram Pos & Gram Neg Org Abnormal [facility] Breast imaging reportOrdered By: Tenzin Tarango on 06-18-2025 Study report [facility] Imaging Services [address] [place], [place] [id number] SCRN MAMM (CAD)W/AZUCENA BILAT MR#: [id number] Acct: [id number] Name: DEVI LUIS Rep #: [id number] : 1960 F 64 From: Devonte Tarango MD PCP: Dr. Ruba Melo MD Status: [facility] CL Study:SCRN MAMM (CAD)W/AZUCENA BILAT Date of Exa m: 06/17/25 Exam# [id number] Ordering Dr: Jose Luis Melo MD EXAM: SCRN MAMM (CAD)W/AZUCENA BILAT [...] be mailed to the patient. Reading Location: AMELIA CC: Dr. Ruba Melo MD ~ Curator Of Education: Signed [facility] SCRN MAMM (CAD)W/AZUCENA BILATo n 06-17-2025 SCRN MAMM (CAD)W/AZUCENA BILAT [facility] Imaging Services [address] [place] [address] SCRN MAMM (CAD)W/AZUCENA BILAT MR#: [id number] Acct: [id number] Name: DEVI LUIS Rep #: [id number] : 1960 F 64 From: Tenzin reyes MD PCP: Dr. Ruba Melo MD Status: REG CLI Study: SCRN MAMM (CAD)W/AZUCENA BILAT Date of Exam: 06/08 Exam# [id number] Ordering Dr: Ruba Melo MD EXAM: SCRN [...] be mailed to the patient. Reading Location: [id number] CC: Dr. Ruba Melo MD Curator Of Education: Signed Normal [facility] Chest PA and Lateralon 11-24 Chest PA and Lateral [facility] Imaging Services [address] [place] [address] Chest PA and Lateral MR#: [id number] Acct: [id number] Name: DEVI LUIS Rep #: [id number] : 1960 F 64 From: Mohinder Soria MD PCP: Dr. Ruba Melo MD Status: REG CLI Study: Chest PA and Lateral Date of Exam: 11/24/24 Exam# [id number] Ordering Dr: Sandy Prakash ASSEMBLY STOCK SUPERVISOR-Lisha PROCEDURE: CHEST PA AND LATERAL REASON FOR EXAM: Rule out pneumonia TECHNIQUE: Frontal and lateral views of the chest. COMPARISON: None. FINDINGS: The heart size is normal. There are atherosclerotic calcifications of the thoracic aorta. The lungs are clear. The bones are unremarkable. RAD/Chest PA and Lateral IMPRESSION: No radiographic evidence of acute cardiopulmonary disease Reading Location: [facility] CC: ASSEMBLY STOCK SUPERVISOR-C Sandy Prakash; Dr. Ruba Melo MD Curator Of Education: Signed Normal [facility] CNOVon 04-28-2024 CN Office Visit (WSTR ) -- JASONDEVI OSULLIVAN ([id number]) 1960 F Date Time Provider Department 04/28/24 7:15 AM DALLIN CABRERA [facility] During your visit today, we recorded the following information about you: Temperature Pulse Respiration Blood pressure 98.9 degrees 88/minute 16/minute 110/64 Weight 87.9 kg Dallin Cabrera APRN.GOVERNMENT TEACHER 04/28/2024 9:03 AM Signed This note was created using NoteWriter. Subjective [...] history is provided by the patient. No russian language instructor was used. Sinus Problem This is a [...] times a day as needed for cough. ciprofloxacin-dexAMETHason e (CIPRODEX) 0.3-0.1 % otic suspension Use 4 [...] or ral (more content not included)... Normal [facility] XR CHEST 2V FRONTAL/LATon XR [...] raising concern for infection/pneumonia. Please clinically correlate. Curator Of Education: [facility] Transcribe Date/Time: Apr 28 2024 8:19A Dictated by : KINA DAVIS MD This examination was interpreted and the report reviewed and electronically signed by: KINA DAVIS MD on Apr 28 2024 8:20AM EST [id number] Normal [facility] XR Chest PA and Lateralon IMPRESSION: Small opacities in the bilateral lungs, raising concern for infection/pneumonia. Please clinically correlate. Curator Of Education: [facility] Transcribe Date/Time: Apr 28 2024 8:19A Dictated [...] tissues: Unremarkable. DIVISION OF RADIOLOGY Provider, Enrique bates Kake - 04/28/2024 * * *Final Report* * [...] raising concern for infection/pneumonia. Please clinically correlate. Curator Of Education: PSCJorge Alberto Transcribe Date/Time: Apr 28 2024 8:19A Dictated by : KINA DAVIS MD This examination was interpreted and the report reviewed and electronically signed by: KINA DAVIS MD on Apr 28 2024 8:20AM EST [facility] Radiology Study observation (narrative) [facility] XR Chest PA and LateralOrder ed By: Ccf Provider on 04-28-2024 [facility] Vital Signs Date Time Vital Sign Value Performing Clinician Facility 08-04-2025 14:57-0400 Body height 167.[address] Ruba Melo MD Work Phone: [facility] 08-04-2025 14:57-0400 Body mass index (BMI) [Ratio] 34 kg/m2 Dr. Ruba Melo MD Work Phone: [facility] 08-04-2025 14:57-0400 Body temperature 97.1 [degF] Dr. Ruba Melo MD Work Phone: [facility] 08-04-2025 14:57-0400 Body weight 95.[address] Ruba Melo MD Work Phone: [facility] 08-04-2025 14:57-0400 Diastolic blood pressure 77 mm[Hg] Dr. Ruba Melo MD Work Phone: [facility] 08-04-2025 14:57-0400 Heart rate 90 /min Dr. Ruba Melo MD Work Phone: [facility] 08-04-2025 14:57-0400 Respiratory rate 18 /min Dr. Ruba Melo MD Work Phone: [facility] 08-04-2025 14:57-0400 SaO2% (BldA) [Mass fraction] 98 % Dr. Ruba Melo MD Work Phone: [facility] 08-04-2025 14:57-0400 Systolic blood pressure 120 mm[Hg] Dr. Ruba Melo MD Work Phone: [facility] 07-27-2025 15:09-0400 Body mass index (BMI) [Ratio] 33.6 kg/m2 Dr. Ruba Melo MD Work Phone: [facility] 07-27-2025 15:09-0400 Body temperature 97.7 [degF] Dr. Ruba Melo MD Work Phone: [facility] 07-27-2025 15:09-0400 Body weight 94.[address] Ruba Melo MD Work Phone: [facility] 07-27-2025 15:09-0400 Diastolic blood pressure 84 mm[Hg] Dr. Ruba Melo MD Work Phone: [facility] 07-27-2025 15:09-0400 Heart rate 79 /min Dr. Ruba Melo MD Work Phone: [facility] 07-27-2025 15:09-0400 Respiratory rate 18 /min Dr. Ruba Melo MD Work Phone: [facility] 07-27-2025 15:09-0400 SaO2% (BldA) [Mass fraction] 96 % Dr. Ruba Melo MD Work Phone: [facility] 07-27-2025 15:09-0400 Systolic blood pressure 129 mm[Hg] Dr. Ruba Melo MD Work Phone: [facility] 04-28-2024 07:20-0400 Body temperature 98.91 [degF] Dallin Cabrera FABRIC AND TEXTILE FACTORY WORKER.GOVERNMENT TEACHER Work Phone: [facility] 04-28-2024 07:20-0400 Body weight 87.9 kg Dallin Cabrera FABRIC AND TEXTILE FACTORY WORKER.GOVERNMENT TEACHER Work Phone: [facility] 04-28-2024 07:20-0400 Diastolic blood pressure 64 mm[Hg] Dallin Cabrera FABRIC AND TEXTILE FACTORY WORKER.GOVERNMENT TEACHER Work Phone: [facility] 04-28-2024 07:20-0400 Heart rate 88 /min Dallin Cabrera FABRIC AND TEXTILE FACTORY WORKER.GOVERNMENT TEACHER Work Phone: [facility] 04-28-2024 07:20-0400 Respiratory rate 16 /min Dallin Cabrera FABRIC AND TEXTILE FACTORY WORKER.GOVERNMENT TEACHER Work Phone: [facility] 04-28-2024 07:20-0400 SaO2% (BldA) [Mass fraction] 94 % Dallin Cabrera FABRIC AND TEXTILE FACTORY WORKER.GOVERNMENT TEACHER Work Phone: [facility] 04-28-2024 07:20-0400 Systolic blood pressure 110 mm[Hg] Dallin Cabrera FABRIC AND TEXTILE FACTORY WORKER.GOVERNMENT TEACHER Work Phone: [facility] Encounters Encounter Date Encounter Type Care Provider Facility Start: 08-13-2025 ambulatory [facility] Facility: [facility] Start: 08-10-2025 ambulatory [facility] Facility: [facility] Start: 08-06-2025 End: 08-06-2025 ambulatory [facility] Facility:[facility] Start: 08-04-2025 End: 08-04-2025 ambulatory [facility] Start: 07-27-[address] Cj Castaneda MD -[facility] Start: 07-27-2025 End: 07-27-[address] Cj Castaneda MD -[facility] Work Phone: Start: 07-27-2025 End: 07-27-[address] Ruba Melo MD Work Phone: -[facility] Start: 07-21-2025 Non-patient / Non-visit Darby Broderick si TATI -[facility] Work Phone: Start: 07-21-2025 ambulatory Ruba Melo [facility] Start: 07-07-2025 End: 07-07-[address] Ruba Melo MD -Laboratory Specimen Work Phone: Start: 07-07-2025 End: 07-07-2025 ambulatory Ruba Melo Facility:[facility] Start: 06-17-2025 End: 06-17-[address] Ruba Melo MD Work Phone: -Outpatient Breast Imaging Start: 06-17-2025 End: 06-17-[address] Ruba Melo MD -[facility] Work Phone: Start: 06-17-2025 End: 06-17-2025 ambulatory Ruba Melo Facility:[facility] Start: 11-24-2024 End: 11-24-2024 [facility] Start: 04-28-2024 End: 04-28-2024 Subsequent hospital visit by physician [facility] Work Phone: Radiology Comment on above: Acute cough [R05.1] Start: 04-28-2024 End: 04-28-2024 ambulatory RUBA MELO Facility:[facility] Start: 04-28-2024 End: 04-28-2024 Patient encounter procedure Dallin Cabrera APRN.GOVERNMENT TEACHER Work Phone: [facility] Comment on above: Acute cough (Primary Dx); Pneumonia of both lungs due to infectious organism, unspecified part of lung; Acute otitis externa of both ears, unspecified type Procedures Date Procedure Procedure Detail Performing Clinician Start: 07-27-[address] Ruba Melo MD Work Phone: Start: 07-07-[address] Shayla Melo MD Work Phone: Start: 06-17-2025 Screening mammography Toribio Melo MD Work Phone: Start: 04-28-2024 Radiologic exam ches t 2 views Dallin Cabrera FABRIC AND TEXTILE FACTORY WORKER.GOVERNMENT TEACHER Work Phone: History of reduction of breast History of reduction mammoplasty Dr. Cj Castaneda MD Comment on above: Bilateral. History of reduction of breast History of reduction mammoplasty Dr. Cj Castaneda MD Plan of Treatment Date Care Activity Detail Author Start: 08-13-2025 Radionuclide whole body bone study Bone Scan Whole Body [facility] Start: 08-13-2025 Patient encounter procedure Registered Clinical -Nuclear Medicine [facility] Work Phone: Start: 08-10-2025 CT of thorax, abdomen and pelvis with contrast CT Chest, Abd, Pel w/Contrast [facility] Start: 08-10-2025 Patient encounter procedure Registered Clinical -Cat Scan [facility] Work Phone: Start: 08-06-2025 Patient encounter procedure Registered Clinical -Laboratory Specimen Work Phone: Start: 08-05-2025 Urine culture Urine Culture [facility] Start: 08-04-2025 End: 08-04-2025 Patient encounter procedure Anxiety associated with cancer diagnosis -[facility] Work Phone: Start: 07-07-2025 Patient encounter procedure Registered Clinical -Laboratory Specimen Work Phone: Start: 07-07-2025 [facility] Start: 07-07-2025 Bacteria identified in Urine by Culture Urine Culture [facility] Start: 06-08-2024 Covid-19 Vaccine ( season) Covid-19 Vaccine () [facility] Start: 06-08-2024 Influenza vaccination Influenza Vaccine (#1) [facility] Start: 10-08-2023 Advance Directive Discussion Advance Directive Discussion [facility] Start: 10-08-2023 Behavioral Health Screening Behavioral Health Screening [facility] Start: 2023 Pneumococcal Vaccine: 65+ (1 of 1 - PCV) Pneumococcal Vaccine: 65+ (1 of 1 - PCV) [facility] Start: 2023 Screening for osteoporosis Bone Density Screening [facility] Start: 06-08-2023 Covid-19 Vaccine ( season) Covid-19 Vaccine ( season) [facility] Start: 2018 RSV Vaccine (1 - 1-dose 60+ series) RSV Vaccine (1 - 1-dose 60+ series) [facility] Start: 2008 Shingrix Vaccine (1 of 2) Shingrix Vaccine (1 of 2) [facility] Start: 2003 Diabetes Screening Diabetes Screening [facility] Start: 2003 Lipid panel Lipid Screening [facility] Start: 2003 Screening for malignant neoplasm of colon [facility] Start: 1998 Screening for malignant neoplasm of breast Mammogram Screening [facility] Start: 1977 Urine microalbumin profile DTaP,Tdap,Td Vaccine (1 - Tdap) [facility] Start: 1976 Anxiety Screening Anxiety Screening [facility] Start: 1976 Depression Screening Depression Screening [facility] Start: 1976 Hepatitis C screening Hepatitis C Screening [facility] Start: 1976 HIV screening HIV Screening [facility] Urine culture [facility] Payers Date Payer Category Payer Self-pay 2024 Medicare MMO MEDICARE MMO [employer]ANTAGE HMO [id number] 2024-Present [phone] [address] [place] [address] O [id number] 2024 Unknown [id number] Unknown [id number] Unknown [id number] 2 Unknown [id number] [id number] 2 Unknown [id number] [id number] 2 Unknown [id number] [id number] 2 Unknown [id number] [id number] 2 Unknown [id number] [id number] 2 Unknown [id number] [id number] 2 Unknown [id number] [id number] 2 Unknown [id number] [id number] 2 Unknown [id number] [id number] 2 Social History Date Type Detail Facility Tobacco smoking status MOIS Tobacco smoking consumption unknown [facility] Start: 1960 Sex Assigned At Not on file [facility] Gender identity Not on file [facility] Start: 05-05-2024 End: 07-27-2025 Tobacco smoking status NHIS Ex-smoker (finding) [facility] Start: 1960 Sex Assigned At Female [facility] Clinical Notes 04-28-2024 to 07-27-2025 Note Date & Type Note Facility 07-27-2025 Progress note [facility] 07-27-2025 Evaluation note Diagnosis Onset Date Resolution History of reduction mammoplasty acute July 27 2:52pm Breast cancer, right chronic Octo 2024 2:52pm Anxiety associated with cancer diagnosis acute August 04 2:49pm History of reduction mammoplasty acute August 04 2:49pm Breast cancer, right chronic Octo 2024 2:49pm [facility] Work Phone: [phone] 633-251507-22-2024 History of Present illness Narrative* Cathy Lamb RT(R) - 04/28/2024 8:00 AM EDT Radiology Service Progress Note PATIENT NAME: Devi Luis DATE OF SERVICE: April 28, 2024 TIME: 8:11 AM PATIENT IDENTITY VERIFICATION COMPLETED USING TWO (2) IDENTIFIERS: Name and Date of confirmedby patient verbally. FALL SCREENING: Has the patient had 2 falls in the last year or 1 fall with injury or currently using an Ambulatory Assistive Device (Walker, Cane, Wheelchair, Crutches, etc.)? No PATIENT GENDER DATA: Female. status: : No status: NO. PATIENT RELEVANT IMPLANT DATA REVIEWED: Yes PATIENT PRESENTS WITH AN IMPLANTABLE OR ATTACHED ELECTROCARDIOGRAPHIC TECHNICIAN: No RADIOLOGY DEPARTMENT: General X-ray: Exam(s) Completed: Chest X-Ray PERIPHERAL IV DATA: Not applicable SIGNED BY: DL Garcia) April 28, 2024 8:11 AM documented in [facility] encounter[facility]24 NoteHNO ID: [id number] Author: CATHY LAMB RT (R) Service: Radiology Author Type: Technologist Type: Progress [...] PATIENT PRESENTS WITH AN IMPLANTABLE OR ATTACHED ELECTROCARDIOGRAPHIC TECHNICIAN: No RADIOLOGY DEPARTMENT: General X-ray: Exam(s) Completed: Chest X-Ray PERIPHERAL IV DATA: Not applicable SIGNED BY: DL Garcia) April 28, 2024 8:11 [facility]07-22-2024 NoteHNO ID: [id number] Author: DALLIN CABRERA APRN.[facility] Service: ? Author Type: Nurse Practitioner Type: Progress Notes Filed: 04/28/2024 09:03 Note Text: This note was created using NoteWriter. Subjective Dvei Luis is a 63 year old female. [...] history is provided by the patient. No russian language instructor was used. Sinus Problem This is a [...] guarding or rebound. Hernia (more content not included)...[facility]07-22-2024 History of Present illness Narrative* Dallin Cabrera APRN.GOVERNMENT TEACHER - 04/28/2024 7:23 AM EDT This note was created using [employer]. Subjective Devi Luis is a 63 year [...] history is provided by the patient. No russian language instructor was used. Sinus Problem This is a new problem. The current episode started 1 to 4 weeks ago. The problem occurs constantly.The problem has been gradually worsening. Associated symptoms include congestion, coughing, a fever, headaches and swollen glands. Pertinent negatives include no abdominal pain, anorexia, arthralgias, change in bowel habit, chest pain, chills, diaphoresis, fatigue, joint swelling, myalgias, nausea,neck pain, numbness, rash, sore throat, urinary symptoms, vertigo, visual change, vomiting or weakness. Nothing aggravates the symptoms. She has tried nothing for the symptoms. The treatment providedno relief. No past medical history on file. [...] Use 4 Drops in both ears two timesa day. amoxicillin-clavulanate potassium (AUGMENTIN) 875-125 mg per [...] placing hydrogen peroxide in ear Dallin Cabrera APRN.GOVERNMENT TEACHER [facility]* Diagnosis Acute cough- Primary Pneumonia of both lungs due to infectious organism, unspecified part of lung Acute otitis externa of both ears, unspecified type Acute cough documented in this encounter [facility]* Diagnosis Acute cough documented in this encounter [facility] noteNo assessment information availableWKing's [facility] [place] Work Phone: Progress note Author Cj Castaneda [facility] Note Date/Time July 27, 2025 4 :59pm [facility] [address] [place] [id number] OFFICE VISIT Date of Service: 07/27/25 1508 MR#: [id number] Acct: [id number] Name: DEVI LUIS Rep #: [id number] : 1960 From: Cj Castaneda MD Age/Sex: 65/F Location: [facility] Status: Signed HPI Subjective Date of Service 07/27/25 Chief Complaint F/u for R breast cancer. History of Present Illness 65-year-old woman is referred for further management of right breast cancer. She was found to have an abnormal mammogram on 04/22/2020 in [facility]. She was found to have focal asymmetry in the upper outer quadrant of right breast. Ultrasound on 05/03/2020 showed 1.7 spiculated mass at the 11 o'clock position. She underwent ultrasound-guided core biopsy on 05/10/2020. Pathology showed invasive mammary carcinoma favor lobular, ER +95%, MO +100%, HER2 by IHC negative. She underwent right breast lumpectomy with sentinel node biopsy of the right axilla and bilateral breast reduction on 07/01/2020. Pathology showed right breast lumpectomy and axillary dissection invasive lobular carcinoma tumorsize 3 cm margins negative, grade 2, lymph nodes 2 out of 3 positive for micrometastasis. Pathologic staging pT2 pN1 mi. Oncotype Dx recurrence score 15. She was diagnosed with right invasive lobular carcinoma, prognostic stage IB. She got adjuvant radiation therapy to the right breast from August 11, 2022 August 31, 2020. She then started adjuvant anastrozole in August 2020. She moved to the area and wants to follow-up here in [place]. She feels well [facility] Medical History Psoriatic arthritis Fibromyalgia Hypothyroid Asthma Essential (primary) hypertension Hx of breast cancer Mitral valve prolapse GERD (gastroesophageal reflux disease) Hypercholesterolemia Depression Anxiety Cervical disc disease Surgical History H/O rectocele repair H/O discectomy History of lumpectomy of right breast H/O breast biopsy History of cholecystectomy History of appendectomy Hx of hysterectomy for benign disease Hx of thyroidectomy Family History Mother Hypercholesteremia Diabetes COPD (chronic obstructive pulmonary disease) Hypertension Breast cancer Hyperglycemia Lung disease Father Lung cancer Sister Breast cancer Hypertension Social History Smoking Status: Former smoker alcohol intake: current alcohol intake frequency: holidays/special occasions only Alcohol type: wine substance use type: does not use ROS Constitutional Constitutional: Reports systems reviewed and no addt'l complaints, except as documented Eyes Eyes: Reports systems reviewed and no addt'l complaints, except as documented ENT HEENT: Reports systems reviewed and no addt'l complaints, except as documented Cardiovascular Cardiovascular: Reports systems reviewed and no addt'l complaints, except as documented Respiratory/Chest Respiratory/Chest: Reports systems reviewed and no addt'l complaints, except as documented Gastrointestinal Gastrointestinal: Reports systems reviewed and no addt'l complaints, except as documented Genitourinary Genitourinary: Reports systems reviewed and no addt'l complaints, except as documented Musculoskeletal Musculoskeletal: Reports systems reviewed and no addt'l complaints, except as documented Integumentary Integumentary: Reports systems reviewed and no addt'l complaints, except as documented Neurologic Neurologic: Reports systems reviewed and no addt'l complaints, except as documented Psychiatric Psychiatric: Reports systems reviewed and no addt'l complaints, except as documented Endocrine Endocrinology: Reports systems reviewed and no addt'l complaints, except as documented Hematologic/Lymphatic Hematologic/Lymphatic: Reports systems reviewed and no addt'l complaints, exceptas documented Allergic/Immunologic Allergic/Immunologic: Reports systems reviewed and no addt'l complaints, except as documented Intake Vital Signs 07/27/25 15:09 Height 5 ft 6 in Weight: 94.602 kg BMI 33.6 BP 129/84 H Blood Pressure Location Lt brachial Position Sitting Respiration 18 Pulse 79 Pulse Source Monitor Temp 97.7 F L Temperature Source Temporal Artery Pulse Oximetry (%) 96 Oxygen Delivery Method room air Intake Accompanied by: Self Is patient in pain?: No Allergies amitriptyline Allergy (Severe, Verified 07/27/25 15:10) Anaphylaxis shellfish derived Allergy (Severe, Verified 07/27/25 15:10) Anaphylaxis Medications ?Medication ?Instructions ?Recorded ?Confirmed ?Type albuterol sulfate 90 mcg/actuation 2 puff inhalation Q 4-6H PRN 05/05/24 07/27/25 History aerosol inhaler anastrozole 1 mg tablet 1 mg PO DAILY 05/05/2407/27 History azelastine 137 mcg (0.1 %) nasal 2 spray intranasal BI D 05/05/24 07/27/25 History spray diphenhydramine HCl 25 mg capsule 25 mg PO QHS PRN 07/27/25 History (Benadryl) fluoxetine 20 mg capsule 20 mg PO BID 05/05/24 History fluticasone propionate 50 1 spray intranasal BID 05/0507/27/25 History mcg/actuation nasal spray,suspension levothyroxine 50 mcg capsule 50 mcg PO DAILY 05/05/24 07/27/25 History losartan 50 mg tablet 50 mg PO DAILY 05/05/24/ History trazodone 50 mg tablet 100 mg PO DAILY 05/05/24 History beclomethasone dipropionate 80 1 inh inhalation BID MO N 07/27/25 07/27/25 History mcg/actuation HFA breath activated aerosol (Qvar RediHaler) Have you fallen in the past year?: No Central Venous Access Central Venous Access: No Exam Physical Exam Const alert, oriented x3 and no apparent distress HEENT normocephalic, external ears normal and external nose normal Eyes PERRL, EOMs intact bilaterally and conjunctivae normal Neck supple Lymph Lymphatic: no lymphadenopathy noted Chest Chest Narrative: Plus bilateral reduction mammoplasty scars. Resp normal respiratory effort and clear to auscultation bilaterally Cardio regular rate, regular rhythm, S1 normal heart sound, S2 normal heart sound and no murmurs GI normal to inspection, nondistended, normoactive bowel sounds no CVA tenderness and external exam normal Back/Spine no CVA tenderness and thoracic and lumbar spine normal to inspection Extremity normal to inspection and no clubbing, cyanosis or edema Skin no rashes or lesions noted Neuro oriented x3, CN's II-XII intact bilaterally and moves all extremities Psych mental status grossly normal Coding Level of Care Code Off vis,new,level 4 Diagnoses Malignant neoplasm of upper-outer quadrant of right breast in female, estrogen receptor positive C50.411; Z17.0 Estrogen receptor status: positive Patient sex: female Breast location: upper outer quadrant of breast History of reduction mammoplasty Z98.890 Assessment and Plan Assessment and Plan (1) Breast cancer, right: Status: Chronic Qualifiers: Estrogen receptor status: positive Patient sex: female Breast location: upper outer quadrant of breast Qualified Code(s): C50.411 - Malignantneoplasm of upper-outer quadrant of right female breast; Z17.0 - Estrogen receptor positive status [ER+] Comment: Right breast lobular carcinoma status post right lumpectomy, mammoplasty, tumor size 3 cm, grade 2, sentinel lymph nodes 2 out of 3 with micrometastasis. ER/MO positive HER2 negative. Pathologic stage pT2 pN1mi. Prognostic stage IB. Oncotype DX recurrence score 15. Patient has been on Arimidex since August 2020. Last mammogram on 06/17/2025 was normal. Discussed disease and management with adjuvant hormonal therapy for 5 years or more depending on patient's choice, patient is concerned about metastatic disease. Plan: To continue till end of the year. To obtain CBC, CMP, LDH, Tumor markers. Return to clinic 1 week to discuss further management. (2) History of reduction mammoplasty: Status: Acute Comment: Bilateral. Plan: To do observation Orders: Orders CBC W/Diff, Automated 07/27/25 C50.911 - Malignant neoplasm of unspecified site of right female breast Carcinoembryonic Antigen 07/27/25 C50.911 - Malignant neoplasm of unspecified site of right female breast Cancer Antigen 125 07/27/25 C50.911 - Malignant neoplasm of unspecified site of right female breast CA 15-3 07/27/25 C50.911 - Malignant neoplasm of unspecified site of right female breast CA 27.29 07/27/25 C50.911 - Malignant neoplasm of unspecified site of right female breast LDH 07/27/25 C50.911 - Malignant neoplasm of unspecified site of right female breast LEILA 07/27/25 C50.911 - Malignant neoplasm of unspecified site of right female breast Clinical Quality Measures Falls Risk Screening/Assistive Devices Have you fallen in the past year?: No 07/30/25 1111 <Electronically signed by Cj Rooney> Date _ Cj Castaneda MD [facility] Signature: Date (if applicable) CC: ~ [facility] Work Phone: Reason for referral (narrative)No reason for referral information availableWKing's [facility] [place] Work Phone: Summary Purpose Family History No Family History Records Found Relationship Condition Age at Onset Recorded Date/T david mother Hypercholesterolemia Unknown Diabetes mellitus Unknown Chronic obstructive pulmonary disease Unk nown Hypertension Unknown Malignant neoplasm of breast Unknown father Malignant neoplasm Unknown sister Malignant neoplasm of breast Unknown Relationship Condition Age at Onset Recorded Date/T david mother Hypercholesterolemia Unknown Diabetes mellitus Unknown Chronic obstructive pulmonary disease Unk nown Hypertension Unknown Malignant neoplasm of breast Unknown Hyperglycemia Unknown Disorder of lung Unknown father Malignant neoplasm of lung Unknown sister Malignant neoplasm of breast Unknown Advance Directives No Advanced Directives Records FoundNo Advanced Directives Records Found Chief Complaint and Reason for Visit Chief Complaint Admit Date SCREENING June 17, 2025 3:36pm Chief Complaint Admit Date SCREENING June 17, 2025 3:36pm Amb Documentation July 21, 2025 1 0:59am HX OF BREAST CA July 27, 2025 2 :52pm [facility] August 04, 2025 2 :49pm BREAST CANCER *IV ONLY* August 10 4:03pm BREAST CANCER STAGING August 13, 2025 7:50am Reason for Visit Admit Date History of reduction mammoplasty July 27, 2025 2:52pm Breast cancer, right July 27, 2025 2:52pm Anxiety associated with cancer diagnosis August 04, 2025 2:49pm History of reduction mammoplasty August 04, 2025 2:49pm Breast cancer, right August 04, 2025 2:49pm Additional Source Comments Source Comments (unrecognize d section and content) In the event this informatio n is protected by the Federal Confidentiality of Alcohol and Drug Abuse Patient Records regulations: The Federal rules restrict any use of the information to criminally investigate or prosecute any alcohol or drug abuse patient.[facility] the event this information is protected by the Federal Confidentiality of Alcohol and Drug Abuse Patient Records regulations: The Federal rules restrict any use of the information to criminally investigate or prosecute any alcohol or drug abuse patient.[facility] Reason for Visit (unrecogniz ed section and content) Reason Comments Sinus Problem sinus pressure, drai nage, bilateral ear pain x 1 month Care Teams (unrecognized sec tion and content) Camp Manager Relationship Specialty Start Date End Date Ruba Melo MD [address] [place], [place] [id number] PCP - [facility] 04/28/24 Camp Manager Relationship Specialty Start Date End Date Ruba Melo MD [address] [place], [place] [id number] PCP - [facility] 04/28/24 Team Status: Active Member Role/Relationship Status Dates Dr. Ruba Melo MD Primary care physician Active Team Status: Inactive Member Role/Relationship Status Dates Dr. Ruba Melo MD Primary care physician Active Start: June 17, 2025 End: June 17, 2025 Dr. Ruba Melo MD Attending physician Active Start: June 17, 2025 End: June 17, 2025 Dr. Ruba Melo MD Referring Provider Active Start: June 17, 2025 End: June 17, 2025 Team Status: Active Member Role/Relationship Status Dates Dr. Ruba Melo MD Primary care physician Active Start: July 07, 2025 Dr. Ruba Melo MD Attending physician Active Start: July 07, 2025 Team Status: Inactive Member Role/Relationship Status Dates Dr. Ruba Melo MD Primary care physician Active Start: July 07, 2025 End: July 07, 2025 Dr. Ruba Melo MD Attending physician Active Start: July 07, 2025 End: July 07, 2025 Team Status: Active Member Role/Relationship Status Dates Dr. Ruba Melo MD Primary care physician Active Start: July 21, 2025 Darby Aparicio LPN Attending physician Active Start: July 21, 2025 Team Status: Inactive Member Role/Relationship Status Dates Dr. Ruba Melo MD Primary care physician Active Start: July 27, 2025 End: July 27, 2025 Dr. Ruba Melo MD Referring Provider Active Start: July 27, 2025 End: July 27, 2025 Dr. Cj Castaneda MD Attending physician Active Start: July 27, 2025 End: July 27, 2025 Team Status: Active Member Role/Relationship Status Dates Dr. Ruba Melo MD Primary care physician Active Start: July 27, 2025 Dr. Cj Castaneda MD Attending physician Active Start: July 27, 2025 Dr. Cj Castaneda MD Referring Provider Active S tart: July 27, 2025 Team Status: Inactive Member Role/Relationship Status Dates Dr. Ruba Melo MD Primary care physician Active Start: August 04, 2025 End: August 04, 2025 Dr. Ruba Melo MD Referring Provider Active Start: August 04, 2025 End: August 04, 2025 Dr. Cj Castaneda MD Attending physician Active Start: August 04, 2025 End: August 04, 2025 Team Status: Active Member Role/Relationship Status Dates Dr. Ruba Melo MD Primary care physician Active Start: August 06, 2025 Dr. Ruba Melo MD Attending physician Active Start: August 06, 2025 Dr. Ruba Melo MD Referring Provider Active Start: August 06, 2025 Team Status: Active Member Role/Relationship Status Dates Dr. Ruba Melo MD Primary care physician Active Start: August 10, 2025 Dr. Cj Castaneda MD Attending physician Active Start: August 10, 2025 Dr. Cj Castaneda MD Referring Provider Active S tart: August 10, 2025 Team Status: Active Member Role/Relationship Status Dates Dr. Ruba Melo MD Primary care physician Active Start: August 13, 2025 Dr. Cj Castaneda MD Attending physician Active Start: August 13, 2025 Dr. Cj Castaneda MD Referring Provider Active S tart: August 13, 2025 INFORMATION SOURCE (unrecogn ized section and content) DATE CREATED AUTHOR 04/30/2024 [facility] DATE CREATED AUTHOR AUTHOR'S ORGANIZ ATION 08/19/2025 [facility] Goals (unrecognized section and content) Goals may be documented in a n alternate sectionGoals may be documented in an alternate section FOR RECORDS PERTAINING TO PATIENTS WHO ARE [...] BE BASED ON THE PRIMARY CLINICAL RECORDS. [employer] [facility]. provides no warranty or guarantee of the accuracy or completeness of information in this document.
== END | disposition home or self-care (01) ==
LOC: BFHLAB 13:04
PROVIDERS: PCP Family Medicine; Visit Provider Family Medicine
DX: Z00.00 Encounter for general adult medical examination without abnormal findings (principal); I10 Essential (primary) hypertension; E03.9 Hypothyroidism, unspecified; E55.9 Vitamin D deficiency, unspecified
CPT/HCPCS: 36415; 80053; 80061; 82306; 84439; 84443